=== PATIENT | female | born 1940 | race Hispanic/Latino ===

== ENCOUNTER 2017-09-04 07:37 | Day surgery (SDC) | payer MEDICARE, BC ==
[2016-06-19 10:46] VITALS: PULSE 81
[2017-09-04 06:48] VITALS: BMI 33.8
[2017-09-04 08:19] LABS: BASO # 0.01 K/mm3 (0.0-2.0); BASO % 0.2 % (0.0-3.0); EOS # 0.1 (0.0-0.7); EOS % 2.1 % (1.5-5.0); GRAN # 3.75 (1.4-6.5); GRAN % 61.4 % (50.0-68.0); HEMOGLOBIN 13.7 g/dL (12.0-16.0); LYMPH # 1.8 (1.2-3.4); LYMPH % 29.3 % (22.0-35.0); MEAN CELL VOLUME 95.4 fl (80.0-105.0); MEAN CORPUSCULAR HEMOGLOBIN 31.6 pg (25.0-35.0); MEAN CORPUSCULAR HGB CONC 33.1 g/dl (31.0-37.0); MEAN PLATELET VOLUME 11.6 fl (7.0-11.0); MONO # 0.4 (0.1-0.6); RBC 4.34 10^6/uL (3.5-6.1); RED CELL DISTRIBUTION WIDTH 14.4 % (11.5-14.5); WHITE BLOOD COUNT 6.1 10^3/ul (4.5-11.0)
[2017-09-04 08:29] LABS: INR 1.06 (0.93-1.08); PARTIAL THROMBOPLASTIN TIME 30.2 Seconds (25.1-36.5); PROTHROMBIN TIME 12.2 SECONDS (9.4-12.5)
[2017-09-04 08:30] LABS: BLOOD UREA NITROGEN 18 mg/dL (7-21); CALCIUM 9.7 mg/dL (8.4-10.5); GFR AFRICAN-AMERICAN > 60; GFR NON-AFRICAN AMERICAN > 60
[2017-09-04] MEDS ORDERED: Lidocaine 2% Inj (20ml) ONE (09:10)
[2017-09-04] MEDS ORDERED: HEPARIN SODIUM/NS 2,000 ML IV ONE (09:11)
[2017-09-04] MEDS ORDERED: Nitroglycerin 50mg in D5W 0 MG/0 ML BOTTLE IV ONE (09:12)
[2017-09-04] MEDS ORDERED: Phenylephrine 10 mg/ml Inj ONE (09:12)
[2017-09-04] MEDS ORDERED: Iodixanol 320 MG/ML 200 ML BOTTLE IV ONE (09:13)
[2017-09-04] MEDS ORDERED: Iohexol 350mgl/ml 50 ML ONE (09:13)
[2017-09-04] MEDS ORDERED: Iodixanol 320 MG/ML 100 ML BOTTLE IV ONE (09:13)
[2017-09-04] MEDS ORDERED: Midazolam 2 MG/2 ML VIAL ONE ×2 (09:34→09:43)
[2017-09-04] MEDS ORDERED: Sodium Chloride 0.9% 1,000 ML IV SCH (10:15)
[2017-09-04 10:52] VITALS: TEMP 97.7
--- NOTE | 2017-09-04 12:52 | CARD ---
APPROVED REPORT EKG Measurement Heart [id number] CT 156P34 [id number] <Conclusion> Normal sinus rhythm Inferior infarct, age Old? Abnormal ECG
[2017-09-04 13:08] VITALS: RESP 20
[2017-09-04 14:01] VITALS: O2SAT 97
[2017-09-04 16:56] VITALS: BP 142/74; PULSE 70
--- NOTE | 2017-09-04 19:50 | CARDCATH ---
PROCEDURE DATE: 09/04/2017 HISTORY: The patient is a 77-year-old woman with a history of hypertension and hypercholesterolemia, who is status post triple-vessel PTCA and stent in the past including two Rotablator's performed at [facility] several months ago. She presents with 2 weeks of exertional dyspnea and angina. She says that she is now limited to 10 steps before she gets symptoms. Because of the ongoing symptoms, repeat catheterization was recommended. PROCEDURE: Left heart catheterization with coronary angiography and left ventriculogram were performed. The right femoral artery was cannulated with 6-Israeli sheath. There were no complications. I performed moderate sedation which included the presence of an independent trained observer that assisted in monitoring the patient's level of consciousness and physiologic status. After administration of fentanyl and Versed, my intra service time was 15 minutes. The findings on catheterization revealed a left ventricle that contracted normally. Estimated ejection fraction is 55% to 60%. There was no gradient across the aortic valve. Her coronary anatomy revealed a right dominant circulation. The RCA revealed diffuse atherosclerosis with calcification and a patent stent. The left main artery revealed intimal irregularities without critical lesions. The LAD revealed diffuse atherosclerosis with irregularity in the proximal portion, but a long patent stent in the midportion. At the takeoff of a moderate size diagonal vessel, there was a 90% ostial stenosis. The circumflex artery and obtuse marginal branches revealed intimal irregularities with patent stents noted. The patient tolerated the procedure well. Manual compression will be used to close the femoral artery site because of her peripheral vascular disease. SUMMARY: The procedure revealed patent stents in the RCA, circumflex and LAD. There is a 90% stenosis at the ostium of the diagonal vessel at the takeoff of the stent that was placed at [facility]; however, there was KRISHNA 3 flow down the diagonal vessel. LV function is normal. Given these findings, the patient's treatment should be medical therapy. She should continue a cardiac risk reduction program. We will consider looking at other causes of her exertional dyspnea including ruling out pulmonary disease. Erik Troy MD
== END 2017-09-04 16:45 | disposition home or self-care (01) ==
LOC: CATH 07:37
PROVIDERS: ATTEND Internal Medicine Cardiovascular Disease
DX: I25.10 Atherosclerotic heart disease of native coronary artery without angina pectoris (principal); E78.00 Pure hypercholesterolemia, unspecified; I10 Essential (primary) hypertension; Z95.5 Presence of coronary angioplasty implant and graft
CPT/HCPCS: 36415; 80048; 85025; 85610; 85730; 86850; 86900; 93005; 93458; 99152; 99153; C1769; C1887; C2629; J1644; J2250; J3010; J7030; J7040

== ENCOUNTER 2018-08-12 08:02 | Outpatient (CLI) | payer MEDICARE, BC | END 2018-08-12 08:03 | disposition home or self-care (01) | LOC: RAD 08:02 ==

== ENCOUNTER 2018-09-09 16:57 | Inpatient (IN) | payer MEDICARE, BC ==
[2018-09-09 16:57] VITALS: PULSE 81
[2018-09-09] MEDS ORDERED: Sodium Chloride 0.9% 1,000 ML IV SCH (18:00)
--- NOTE | 2018-09-09 18:07 | ED PDOC ---
Arrival/HPI <Vlad Hollingsworth - Last Filed: 09/09/18 20:31> - General Historian: Patient - History of Present Illness Narrative History of Present Illness (Text): 09/09/18 17:39 78 year old female, with past medical history of A-Fib, Hypertension, Diabetes, and COPD, presents to the ED for evaluation of elevated LFTs today. Patient reports having blood work done at Dr. Langston' office on 09/04 and was informed of elevated LFTs in his office today and was subsequently referred to the ED for medical evaluation. Patient reports abdominal distention and nausea since weeks but denies any other associated somatic complaints. Patient denies any fevers, chills, headache, dizziness, chest pain, shortness of breath, dyspnea on exertion, cough, abdominal pain, vomiting, diarrhea, back pain, neck pain, urinary symptoms or any other complaints. Patient denies any smoking cigarettes or drinking alcohol. PMD: Dr. Langston Time/Duration: > week Symptom Onset: Gradual Symptom Course: Unchanged Activities at Onset: Light Context: Home <Fiona Ybarra - Last Filed: 09/12/18 14:55> - General Chief Complaint: Abnormal Labs Time Seen by Provider: 09/09/18 17:26 Past Medical History - Provider Review Nursing Documentation Reviewed: Yes - Infectious Disease Hx of Infectious Diseases: None - Reproductive Menopause: Yes - Cardiac Hx Hypotension: Yes Hx Pacemaker: No Other/Comment: cardiac stent x 6 - Pulmonary Hx Respiratory Disorders: Yes Hx Asthma: Yes - Neurological Hx Paralysis: No - HEENT Hx HEENT Disorder: No - Renal Hx Renal Disorder: No - Endocrine/Metabolic Hx Diabetes Mellitus Type 2: Yes - Hematological/Oncological Hx Blood Transfusions: No - Integumentary Hx Dermatological Disorder: No - Musculoskeletal/Rheumatological Hx Musculoskeletal Disorders: Yes - Gastrointestinal Hx Gastrointestinal Disorders: No - Genitourinary/Gynecological Hx Genitourinary Disorders: No - Psychiatric Hx Emotional Abuse: No Hx Physical Abuse: No Hx Substance Use: No - Surgical History Hx Cardiac Catheterization: Yes (stents) Hx Coronary Stent: Yes - Anesthesia Hx Anesthesia Reactions: Yes Hx Malignant Hyperthermia: No - Suicidal Assessment Feels Threatened In Home Enviroment: No <Fiona Ybarra - Last Filed: 09/12/18 14:55> Family/Social History - Physician Review Nursing Documentation Reviewed: Yes Family/Social History: Unknown Family HX Smoking Status: Former Smoker Hx Alcohol Use: No Hx Substance Use: No <Fiona Ybarra - Last Filed: 09/12/18 14:55> Allergies/Home Meds <Vlad Hollingsworth - Last Filed: 09/09/18 20:31> <Fiona Ybarra - Last Filed: 09/12/18 14:55> Allergies/Adverse Reactions: Allergies No Known Allergies Allergy (Verified 11/01/15 04:36) Home Medications: Home Meds Medication Instructions Recorded Confirmed RX: Atorvastatin [Lipitor] 10 mg PO DIN 11/10/14 09/09/18 RX: Sotalol [Betapace] 80 mg PO BID 11/10/14 09/09/18 RX: Doxazosin [Cardura] 2 mg PO HS 11/01/15 09/09/18 RX: Cholecalciferol (Vitamin D3) 2,000 unit PO QOTHERDAY 06/14/16 09/09/18 [Vitamin D3] RX: Thomas-3 Fatty Acids/Fish Oil 1,000 mg PO DAILY 06/14/16 09/09/18 [Fish Oil 1,000 mg Capsule] Aspirin [Ecotrin] 81 mg PO DAILY 09/04/17 09/09/18 Diltiazem HCl [Cartia Xt] 180 mg PO DAILY 09/04/17 09/09/18 Tiotropium Charlotte Inhaler 0 inhaler 09/09/18 [Spiriva Inhalation Handihaler Device] Review of Systems - Physician Review All systems were reviewed & negative as marked: Yes - Review of Systems Constitutional: absent: Fevers Respiratory: absent: SOB, Cough Cardiovascular: absent: Chest Pain Gastrointestinal: Nausea, Other (Abdominal distention). absent: Diarrhea, Vomiting Genitourinary Female: absent: Dysuria, Urine Output Changes Musculoskeletal: absent: Back Pain, Neck Pain Skin: absent: Rash Neurological: absent: Headache, Dizziness <Fiona Ybarra - Last Filed: 09/12/18 14:55> Physical Exam Vital Signs Temp Pulse Resp BP Pulse Ox 09/09/18 17:12 98.7 F 78 20 125/76 96 09/09/18 16:57 98.7 F 78 20 125/76 96 <Vlad Hollingsworth - Last Filed: 09/09/18 20:31> Vital Signs Reviewed: Yes Vital Signs Temp Pulse Resp BP Pulse Ox 09/09/18 17:12 98.7 F 78 20 125/76 96 Temperature: Afebrile Blood Pressure: Normal Pulse: Regular Respiratory Rate: Normal Appearance: Positive for: Well-Appearing, Non-Toxic, Comfortable Pain Distress: None Mental Status: Positive for: Alert and Oriented X 3 - Systems Exam Head: Present: Atraumatic, Normocephalic Pupils: Present: PERRL Extroacular Muscles: Present: EOMI Conjunctiva: Present: Icteric Mouth: Present: Dry Neck: Present: Normal Range of Motion Respiratory/Chest: Present: Clear to Auscultation, Good Air Exchange. No: Res piratory Distress, Accessory Muscle Use Cardiovascular: Present: Regular Rate and Rhythm, Normal S1, S2. No: Murmurs Abdomen: No: Tenderness, Distention, Peritoneal Signs Back: Present: Normal Inspection Upper Extremity: Present: Normal Inspection. No: Cyanosis, Edema Lower Extremity: Present: Edema (trace edema bilaterally) Neurological: Present: GCS=15, CN II-XII Intact, Speech Normal Skin: Present: Warm, Dry, Other (Jaundice). No: Rashes Psychiatric: Present: Alert, Oriented x 3, Normal Insight, Normal Concentration <Fiona Ybarra - Last Filed: 09/12/18 14:55> Medical Decision Making - Lab Interpretations Lab Results: PT 16.0 SECONDS (9.4-12.5) H 09/09/18 18:00 INR 1.44 09/09/18 18:00 APTT 32.1 Seconds (26.9-38.3) 09/09/18 18:00 Troponin I < 0.01 ng/mL D 09/09/18 18:00 Total Bilirubin 10.1 mg/dL (0.2-1.3) H 09/09/18 18:00 AST 121 U/L (14-36) H 09/09/18 18:00 ALT 147 U/L (7-56) H 09/09/18 18:00 Alkaline Phosphatase 364 U/L (38-126) H 09/09/18 18:00 Total Protein 8.0 g/dL (5.8-8.3) 09/09/18 18:00 Albumin 4.0 g/dL (3.0-4.8) 09/09/18 18:00 Globulin 4.0 gm/dL 09/09/18 18:00 Albumin/Globulin Ratio 1.0 (1.1-1.8) L 09/09/18 18:00 Lipase 345 U/L (23-300) H 09/09/18 18:00 - RAD Interpretation Radiology Orders: 09/09/18 17:39 CHEST PORTABLE [RAD] Stat 09/09/18 17:40 ABD & PELVIS IV CONTRAST ONLY [CT] Stat 09/09/18 17:52 ABDOMEN COMPLETE [US] Stat - Medication Orders Current Medication Orders: Sodium Chloride (Sodium Chloride 0.9%) 1,000 mls @ 100 mls/hr IV .Q10H SONIA Last Admin: 09/09/18 19:04 Dose: 100 mls/hr eMAR Start Stop Document 09/09/18 19:04 SRE (Rec: 09/09/18 19:07 SRE [id number]) Intravenous Solution Start Date 09/09/18 Start Time 19:07 <Vlad Hollingsworth - Last Filed: 09/09/18 20:31> ED Course and Treatment: 09/09/18 17:39 Impression: 78 year old female presents to the ED for evaluation of elevated LFTs. Plan: -- CT of Abdomen/Pelvis -- EKG -- Labs -- CXR -- IV fluids -- Urinalysis -- US of Abdomen -- Reassess and disposition Prior Visits: Notes and results from previous visits were reviewed. Progress Notes: 09/09/18 18:[address] Langston' office reviewed, shows: Total bilirubin 8.4 Alkaline phosphate 288 ALT 166 AST 98 09/09/18 18:57 Patient signed out to Dr. Hollingsworth for pending CT of Abdomen, reassessment and final disposition. 09/09/18 19:11 EKG reviewed, shows NSR at 78 bpm, nml intervals. Left axis deviation. - RAD Interpretation Radiology Orders: 09/09/18 17:39 CHEST PORTABLE [RAD] Stat 09/09/18 17:40 ABD & PELVIS IV CONTRAST ONLY [CT] Stat 09/09/18 17:52 ABDOMEN COMPLETE [US] Stat - Medication Orders Current Medication Orders: Sodium Chloride (Sodium Chloride 0.9%) 1,000 mls @ 100 mls/hr IV .Q10H SONIA - Transfer of Care Patient signed out to Dr:: Dr. Hollingsworth Pending Radiology Studies:: Pending CT of Abdomen/Pelvis <Fiona Ybarra - Last Filed: 09/12/18 14:55> - Scribe Statement The provider has reviewed the documentation as recorded by the Scribe Kimo Mosley. All medical record entries made by the Scribe were at my direction and personally dictated by me. I have reviewed the chart and agree that the record accurately reflects my personal performance of the history, physical exam, medical decision making, and the department course for this patient. I have also personally directed, reviewed, and agree with the discharge instructions and disposition. <Fiona Ybarra - Last Filed: 09/12/18 14:55> Disposition/Present on Arrival - Present on Arrival Any Indicators Present on Arrival: No History of DVT/PE: No History of Uncontrolled Diabetes: No Urinary Catheter: No History of Decub. Ulcer: No History Surgical Site Infection Following: None - Disposition Have Diagnosis and Disposition been Completed?: Yes <Vlad Hollingsworth - Last Filed: 09/09/18 20:31> - Present on Arrival History of DVT/PE: No History of Uncontrolled Diabetes: No Urinary Catheter: No History of Decub. Ulcer: No History Surgical Site Infection Following: None - Disposition Disposition Time: 14:54 <Fiona Ybarra - Last Filed: 09/12/18 14:55> - Disposition Diagnosis: Jaundice, Transaminasemia, Pancreatic cancer, Ascites Disposition: HOSPITALIZED Patient Problems: Current Active Problems Problem Status Onset Jaundice Acute Pancreatic cancer Acute Transaminasemia Acute Condition: STABLE
[2018-09-09 18:20] LABS: BASO # 0.02 K/mm3 (0.0-2.0); BASO % 0.2 % (0.0-3.0); EOS # 0.1 (0.0-0.7); EOS % 0.9 % (1.5-5.0); HEMOGLOBIN 13.8 g/dL (12.0-16.0); LYMPH # 2.1 (1.2-3.4); LYMPH % 24.8 % (22.0-35.0); MEAN CELL VOLUME 92.5 fl (80.0-105.0); MEAN CORPUSCULAR HEMOGLOBIN 31.3 pg (25.0-35.0); MEAN CORPUSCULAR HGB CONC 33.8 g/dl (31.0-37.0); MEAN PLATELET VOLUME 13.4 fl (7.0-11.0); MONO # 0.6 (0.1-0.6); RBC 4.41 10^6/uL (3.5-6.1); RED CELL DISTRIBUTION WIDTH 15.8 % (11.5-14.5); WHITE BLOOD COUNT 8.6 10^3/uL (4.5-11.0)
[2018-09-09 18:21] LABS: ALT/SGPT 147 U/L (7-56); AST/SGOT 121 U/L (14-36); BLOOD UREA NITROGEN 10 mg/dL (7-21); CALCIUM 9.7 mg/dL (8.4-10.5); GFR NON-AFRICAN AMERICAN > 60; LIPASE 345 U/L (23-300)
[2018-09-09 18:24] LABS: INR 1.44; PARTIAL THROMBOPLASTIN TIME 32.1 Seconds (26.9-38.3)
[2018-09-09 18:31] LABS: TROPONIN I < 0.01 ng/mL
[2018-09-09] MEDS ORDERED: DiphenhydrAMINE 50 mg/ml Inj IVP STA (18:38)
[2018-09-09] MEDS ORDERED: Iohexol 350 MG/100 ML VIAL ONE (18:44)
--- NOTE | 2018-09-09 18:49 | RAD ---
Date of service: 09/09/2018 HISTORY: screening COMPARISON: 04/03/2016. FINDINGS: LUNGS: The lungs are well inflated. There is linear scarring in the lower lobes. No focal consolidation. PLEURA: No pleural effusions or pneumothorax. CARDIOVASCULAR: The heart is normal in size. There are aortic atherosclerotic calcifications present. OSSEOUS STRUCTURES: Within normal limits for the patient's age. VISUALIZED UPPER ABDOMEN: Normal. OTHER FINDINGS: None. IMPRESSION: No active pulmonary disease.
--- NOTE | 2018-09-09 18:58 | US ---
Date of service: 09/09/2018 HISTORY: ruq pain, elevated lfts COMPARISON: None. TECHNIQUE: Sonographic evaluation of the abdomen. FINDINGS: LIVER: Measures 18.1 cm. There is diffuse increased echogenicity of the liver parenchyma. There is moderate intrahepatic biliary ductal dilatation. There are multiple well-circumscribed round hypoechoic lesions in the liver, the largest measures 1.6 x 1.0 x 1.6 cm. GALLBLADDER: The gallbladder is distension layering sludge. There are no gallstones, wall thickening or pericholecystic fluid. The sonographic Garcia's sign is negative. COMMON BILE DUCT: Measures 11.0 mm. Diffuse dilatation. No stone. PANCREAS: There is a 1.7 x 1.5 x 1.0 cm hyperechoic lesion in the head of the pancreas. There is a 1.1 x 0.9 x 1.0 cm cyst in the head of pancreas. RIGHT KIDNEY: Measures 11.1cm. Normal echogenicity. No calculus, mass, or hydronephrosis. There is a 2.0 cm simple cyst in the lower pole. LEFT KIDNEY: Measures 12.0cm. Normal echogenicity. No calculus, mass, or hydronephrosis. SPLEEN: Normal in size and contour. No mass. AORTA: No aneurysmal dilatation. IVC: Unremarkable. OTHER FINDINGS: None. IMPRESSION: 1. Fatty liver. 2. Moderate intra and extrahepatic biliary ductal dilatation and gallbladder distention with layering sludge. No sonographic evidence for choledocholithiasis. 3. Apparent 1.1 cm cyst in the head of the pancreas and 1.7 cm lesion in the head which may represent calcification. However evaluation of the pancreas is limited on ultrasound examination. Correlation with CT scan of the abdomen without and with intravenous contrast with pancreas protocol is advised given biliary dilatation.
--- NOTE | 2018-09-09 19:15 | ED PDOC ---
Physical Exam Vital Signs Reviewed: Yes Vital Signs Temp Pulse Resp BP Pulse Ox 09/09/18 17:12 98.7 F 78 20 125/76 96 09/09/18 16:57 98.7 F 78 20 125/76 96 Temperature: Afebrile Blood Pressure: Normal Pulse: Regular Respiratory Rate: Normal Appearance: Positive for: Well-Appearing, Non-Toxic, Comfortable Pain Distress: None Mental Status: Positive for: Alert and Oriented X 3 - Systems Exam Head: Present: Atraumatic, Normocephalic Pupils: Present: PERRL Extroacular Muscles: Present: EOMI Conjunctiva: Present: Normal, Icteric Mouth: Present: Dry Neck: Present: Normal Range of Motion Respiratory/Chest: Present: Clear to Auscultation, Good Air Exchange. No: Respiratory Distress, Accessory Muscle Use Cardiovascular: Present: Regular Rate and Rhythm, Normal S1, S2. No: Murmurs Abdomen: No: Tenderness, Distention, Peritoneal Signs Back: Present: Normal Inspection Upper Extremity: Present: Normal Inspection. No: Cyanosis, Edema Lower Extremity: Present: Edema (trace edema bilaterally) Neurological: Present: GCS=15, CN II-XII Intact, Speech Normal Skin: Present: Warm, Dry, Other (Jaundice). No: Rashes Psychiatric: Present: Alert, Oriented x 3, Normal Insight, Normal Concentration Medical Decision Making ED Course and Treatment: 09/09/18 19:14 Case endorsed to me by Dr. Ybarra for pending CT Abdomen/Pelvis, reassessment and final disposition. Patient is a 78 year old female who was sent to the ED earlier for evaluation of elevated LFTs. Patient is currently resting in bed in no acute distress. Patient currently denies any new complaints. 09/09/18 20:14 Ct Abd/Pelvis- IMPRESSION: 1. Findings compatible with a 4.0 x 3.0 cm neoplasm in the head of the pancreas. Follow-up with MRI is recommended. 2. Prominent gallbladder size may be consistent with gallbladder hydrops. 3. Intrahepatic/extrahepatic biliary dilatation is present. 4. A small hiatal hernia is noted. 5. Diverticulosis coli in the sigmoid and rectosigmoid colon without evidence of diverticulitis. 6. A small umbilical hernia is noted which contains fat. 7. Extensive atherosclerotic vascular plaquing as described above. 8. Some old anterior wedge compression deformity of L2 and L3 is identified. 9. Advanced degenerative disc disease at L5-S1. 10. Focal pneumonic consolidation versus atelectasis in the anteromedial left mid-lower thorax 09/09/18 20:25 Case was discussed with the quality engineer medical device and house doctor, who accept to the medical service - Lab Interpretations Lab Results: PT 16.0 SECONDS (9.4-12.5) H 09/09/18 18:00 INR 1.44 09/09/18 18:00 APTT 32.1 Seconds (26.9-38.3) 09/09/18 18:00 Troponin I < 0.01 ng/mL D 09/09/18 18:00 Total Bilirubin 10.1 mg/dL (0.2-1.3) H 09/09/18 18:00 AST 121 U/L (14-36) H 09/09/18 18:00 ALT 147 U/L (7-56) H 09/09/18 18:00 Alkaline Phosphatase 364 U/L (38-126) H 09/09/18 18:00 Total Protein 8.0 g/dL (5.8-8.3) 09/09/18 18:00 Albumin 4.0 g/dL (3.0-4.8) 09/09/18 18:00 Globulin 4.0 gm/dL 09/09/18 18:00 Albumin/Globulin Ratio 1.0 (1.1-1.8) L 09/09/18 18:00 Lipase 345 U/L (23-300) H 09/09/18 18:00 - RAD Interpretation Radiology Orders: 09/09/18 17:39 CHEST PORTABLE [RAD] Stat 09/09/18 17:40 ABD & PELVIS IV CONTRAST ONLY [CT] Stat 09/09/18 17:52 ABDOMEN COMPLETE [US] Stat - Medication Orders Current Medication Orders: Sodium Chloride (Sodium Chloride 0.9%) 1,000 mls @ 100 mls/hr IV .Q10H SONIA Last Admin: 09/09/18 19:04 Dose: 100 mls/hr eMAR Start Stop Document 09/09/18 19:04 SRE (Rec: 09/09/18 19:07 SRE [id number]) Intravenous Solution Start Date 09/09/18 Start Time 19:07 - Scribe Statement The provider has reviewed the documentation as recorded by the Scribe Tasfia Melany. All medical record entries made by the Isael were at my direction and personally dictated by me. I have reviewed the chart and agree that the record accurately reflects my personal performance of the history, physical exam, medical decision making, and the department course for this patient. I have also personally directed, reviewed, and agree with the discharge instructions and disposition. Disposition/Present on Arrival - Present on Arrival Any Indicators Present on Arrival: No History of DVT/PE: No History of Uncontrolled Diabetes: No Urinary Catheter: No History of Decub. Ulcer: No History Surgical Site Infection Following: None - Disposition Have Diagnosis and Disposition been Completed?: Yes Diagnosis: Jaundice, Transaminasemia, Pancreatic cancer Disposition: HOSPITALIZED Disposition Time: 20:35 Patient Problems: Current Active Problems Problem Status Onset Jaundice Acute Pancreatic cancer Acute Transaminasemia Acute Condition: STABLE Forms: [employer] (Kinyarwanda)
--- NOTE | 2018-09-09 21:24 | CP.PCM.HP ---
<Demetrius Bunch - Last Filed: 09/10/18 02:12> History of Present Illness - History of Present Illness History of Present Illness: History and Physical for Hospitalist Service, Dr. Clayton Bunch, DO PGY-1 This is a 78 y o female with PMhx HTN, A-fib, DM2, COPD, Lymphoma s/p chemotherapy in 2006, who presents to the ED sent in by PMD Dr. Langston for abnormal LFTs and jaundice. Pt states she has been having abdominal achiness and intermittent nausea present for the past several weeks, denies any inciting factors. Denies feeling itchy, did not notice that her skin was appearing more yellowish until her PMD told her today in the office. Denies any episodes of vomiting, has been able to tolerate PO diet well; pt notes that food tastes different to her lately, similar to when she was receiving her chemotherapy treatment. Pt states she had recent PET scan done several mos ago for multiple nodules on her lungs b/l, but was told as per her doctor at the time that the results were normal. Reports occasional chills. Reports last BM was yesterday, denies diarrhea or constipation. Denies night sweats, fevers, chest pain, sob, urinary complaints, or other symptoms. PMhx: HTN, A-fib, DM2, COPD, Lymphoma s/p chemotherapy in 2006, CAD PSurgHx: s/p 6 cardiac stents placed at [facility] (most recent one in Aug 2017) Allergies: NKDA Home meds: reviewed in MAR Fam hx: Sister with heart disease, hx Alzheimer's disease in family; no family hx of malignancies Soc hx: smoked 1.5 ppd cigarettes, quit in 2006 when diagnosed with lymphoma; denies EtOH or illicit drug use; retired, shares 2 family house with children, lives on 1st floor, able to perform ADLs without concerns PMD: Dr. Langston Present on Admission - Present on Admission Any Indicators Present on Admission: No History of DVT/PE: No History of Uncontrolled Diabetes: No Urinary Catheter: No Decubitus Ulcer Present: No Review of Systems - Constitutional Constitutional: Chills, Fatigue. absent: Fever, Frequent Falls, Headache, Night Sweats, Weakness - EENT Eyes: Other (Yellow eyes) - Cardiovascular Cardiovascular: absent: Chest Pain, Diaphoresis, Dyspnea on Exertion, Leg Edema, Palpitations - Respiratory Respiratory: absent: Cough, Dyspnea on Exertion, Wheezing, Chest Congestion - Gastrointestinal Gastrointestinal: Abdominal Pain, Nausea. absent: Change in Bowel Habits, Constipation, Diarrhea, Dysphagia, Vomiting - Genitourinary Genitourinary: absent: Dysuria, Urinary Frequency - Integumentary Integumentary: Jaundice Past Patient History - Infectious Disease Hx of Infectious Diseases: None - Past Social History Smoking Status: Former Smoker - CARDIAC Hx Hypotension: Yes Hx Pacemaker: No Other/Comment: cardiac stent x 6 - PULMONARY Hx Respiratory Disorders: Yes Hx Asthma: Yes - NEUROLOGICAL Hx Paralysis: No - HEENT Hx HEENT Problems: No - RENAL Hx Chronic Kidney Disease: No - ENDOCRINE/METABOLIC Hx Diabetes Mellitus Type 2: Yes - HEMATOLOGICAL/ONCOLOGICAL Hx Blood Transfusions: No - INTEGUMENTARY Hx Dermatological Problems: No - MUSCULOSKELETAL/RHEUMATOLOGICAL Hx Musculoskeletal Disorders: Yes - GASTROINTESTINAL Hx Gastrointestinal Disorders: No - GENITOURINARY/GYNECOLOGICAL Hx Genitourinary Disorders: No - PSYCHIATRIC Hx Emotional Abuse: No Hx Physical Abuse: No Hx Substance Use: No - SURGICAL HISTORY Hx Cardiac Catheterization: Yes (stents) Hx Coronary Stent: Yes - ANESTHESIA Hx Anesthesia Reactions: Yes Hx Malignant Hyperthermia: No Meds Allergies/Adverse Reactions: Allergies Allergy/AdvReac Type Severity Reaction Status Date / Time No Known Allergies Allergy Verified 11/01/15 04:36 Physical Exam - Constitutional Appears: Non-toxic, No Acute Distress - Head Exam Head Exam: ATRAUMATIC, NORMOCEPHALIC - Eye Exam Eye Exam: EOMI, PERRL, Scleral icterus - ENT Exam ENT Exam: Mucous Membranes Moist Additional comments: Jaundice noted underneath tongue - Respiratory Exam Respiratory Exam: Clear to Auscultation Bilateral, NORMAL BREATHING PATTERN. absent: Rales, Rhonchi, Wheezes - Cardiovascular Exam Cardiovascular Exam: REGULAR RHYTHM, +S1, +S2. absent: Gallop, Rubs, Systolic Murmur - GI/Abdominal Exam GI & Abdominal Exam: Distended, Normal Bowel Sounds, Soft. absent: Guarding, Organomegaly, Rebound, Rigid, Tenderness Additional comments: Negative fluid wave palpated - Extremities Exam Extremities exam: Positive for: full ROM, normal capillary refill, normal inspection, pedal edema, pedal pulses present. Negative for: calf tenderness Additional comments: trace/1+ pedal edema b/l - Back Exam Back exam: FULL ROM, NORMAL INSPECTION. absent: paraspinal tenderness - Neurological Exam Neurological exam: Alert, CN II-XII Intact, Oriented x3, Reflexes Normal - Psychiatric Exam Psychiatric exam: Normal Affect, Normal Mood - Skin Skin Exam: Dry, Intact, Warm Additional comments: Diffuse jaundice noted on upper torso and abdomen on exam Results - Vital Signs Recent Vital Signs: Last Vital Signs Temp 98.7 F 09/09/18 17:12 Pulse 78 09/09/18 17:12 Resp 20 09/09/18 17:12 BP 125/76 09/09/18 17:12 Pulse Ox 96 09/09/18 17:12 - Labs Result Diagrams: 09/09/18 18:00 09/09/18 18:00 Labs: Laboratory Results - last 24 hr 09/09/18 09/09/18 09/09/18 18:00 18:00 18:00 WBC 8.6 RBC 4.41 Hgb 13.8 Hct 40.8 MCV 92.5 MCH 31.3 MCHC 33.8 RDW 15.8 H Plt Count 199 MPV 13.4 H Neut % (Auto) 67.1 Lymph % (Auto) 24.8 [place] % (Auto) 7.0 H Eos % (Auto) 0.9 L Baso % (Auto) 0.2 Lymph # (Auto) 2.1 [place] # (Auto) 0.6 Eos # (Auto) 0.1 Baso # (Auto) 0.02 Absolute Neuts (auto) 5.73 PT 16.0 H INR 1.44 APTT 32.1 Sodium 139 Potassium 3.7 Chloride 105 Carbon Dioxide 24 Anion Gap 14 BUN 10 Creatinine 0.6 L Est GFR ( Amer) > 60 Est GFR (Non-Af Amer) > 60 Random Glucose 110 Calcium 9.7 Magnesium 1.7 Total Bilirubin 10.1 H AST 121 H ALT 147 H Alkaline Phosphatase 364 H Troponin I < 0.01 D Total Protein 8.0 Albumin 4.0 Globulin 4.0 Albumin/Globulin Ratio 1.0 L Lipase 345 H Assessment & Plan - Assessment and Plan (Free Text) Assessment: This is a 78 y o female with PMhx HTN, A-fib, DM2, COPD, Lymphoma s/p chemothe rapy in 2006, who presents to the ED sent in by PMD Dr. Langston for abnormal LFTs and jaundice. Found to have suspected pancreatic neoplasm on CT scan, also transaminitis and hyperbilirubinemia. Plan: Suspected pancreatic neoplasm -Admit to med/surg -Pt with hx hymphoma s/p chemo treatment in 2006, former smoker quit in 2006, no remarkable family hx of neoplasm -Abd U/s: Fatty liver, moderate intra and extrahepatic biliary ductal dilatation and GB distension with layering sludge. No sonographic evidence for choledocholithiasis. Apparent 1.1 cm cyst in the head of the pancreas and 1.7 cm lesion in the head which may represent calcification. However eval of pancreas is limited on U/s exam. Correlation w/ CT scan abd without and with IV contrast with pancreatic protocol is advised given biliary dilatation. -CT abd/pelvis: Findings compatible w/ 4 x3 cm neoplasm in the head of the pancreas. F/u with MRI is recommended. prominent GB size may be consistent w/ GB hydrops. Intrahepatic/extrahepatic biliary dilatation is present. Small hiatal hernia noted. Diverticulosis coli in sigmoid and rectosigmoid colon without evidence of diverticulitis. A small umbilical hernia which contains fat. Extensive atherosclerotic vascular plaquing. Old anterior wedge compression deformity of L2 and L3. Advanced degenerative disc disease at L5-S1. Focal pneumonic consolidation vs. atelectasis in the anteromedial L mid-lower thorax. -GI consulted (Dr. Carias), recs appreciated -Heme/onc consulted (Dr. Cagle), recs appreciated -Lipase elevated at 345 on admission -EKG on admission demonstrates NSR at [address], [address]-T wave changes -Trop neg x1 on admission -Pending CA 19-9, CEA -HHD -IVF @ 60 cc/hr -Zofran prn for nausea Transaminitis -AST/ALT 121/147, ALP 364 -May be 2/2 to pancreatic mass Hyperbilirubinemia -Total bili on admission 10.1 -Pt demonstrating jaundice on exam, scleral icterus -Pending direct bili, GGT Hx HTN -C/w home meds Doxazosin and Sotalol -Cont to trend bps Hx HLD -C/w Lipitor daily Hx CAD s/p 6 stents -C/w home med ASA daily Hx A-fib -C/w home med ASA and Cardizem Hx COPD -C/w home med Spiriva -Duonebs q6h prn for shortness of breath PPX: Protonix/SCDs Pt seen, examined with, and plan discussed with Dr. Arnold, attending physician. Demetrius Bunch DO PGY-1, Engine Monitor Pager #[phone] <Anni Arnold - Last Filed: 09/10/18 03:01> Results - Vital Signs Recent Vital Signs: Last Vital Signs Temp 98.7 F 09/09/18 17:12 Pulse 69 09/10/18 00:57 Resp 17 09/10/18 00:57 BP 144/55 L 09/10/18 00:57 Pulse Ox 95 09/10/18 00:57 - Labs Result Diagrams: 09/09/18 18:00 09/09/18 18:00 Labs: Laboratory Results - last 24 hr 09/09/18 09/09/18 09/09/18 18:00 18:00 18:00 WBC 8.6 RBC 4.41 Hgb 13.8 Hct 40.8 MCV 92.5 MCH 31.3 MCHC 33.8 RDW 15.8 H Plt Count 199 MPV 13.4 H Neut % (Auto) 67.1 Lymph % (Auto) 24.8 [place] % (Auto) 7.0 H Eos % (Auto) 0.9 L Baso % (Auto) 0.2 Lymph # (Auto) 2.1 [place] # (Auto) 0.6 Eos # (Auto) 0.1 Baso # (Auto) 0.02 Absolute Neuts (auto) 5.73 PT 16.0 H INR 1.44 APTT 32.1 Sodium 139 Potassium 3.7 Chloride 105 Carbon Dioxide 24 Anion Gap 14 BUN 10 Creatinine 0.6 L Est GFR ( Amer) > 60 Est GFR (Non-Af Amer) > 60 Random Glucose 110 Calcium 9.7 Magnesium 1.7 Total Bilirubin 10.1 H Direct Bilirubin AST 121 H ALT 147 H Alkaline Phosphatase 364 H Troponin I < 0.01 D Total Protein 8.0 Albumin 4.0 Globulin 4.0 Albumin/Globulin Ratio 1.0 L Lipase 345 H 09/09/18 18:00 WBC RBC Hgb Hct MCV MCH MCHC RDW Plt Count MPV Neut % (Auto) Lymph % (Auto) Hans[place] % (Auto) Eos % (Auto) Baso % (Auto) Lymph # (Auto) Hans[place] # (Auto) Eos # (Auto) Baso # (Auto) Absolute Neuts (auto) PT INR APTT Sodium Potassium Chloride Carbon Dioxide Anion Gap BUN Creatinine Est GFR ( Amer) Est GFR (Non-Af Amer) Random Glucose Calcium Magnesium Total Bilirubin Direct Bilirubin 7.7 H AST ALT Alkaline Phosphatase Troponin I Total Protein Albumin Globulin Albumin/Globulin Ratio Lipase Attending/Attestation - Attestation I have personally seen and examined this patient.: Yes I have fully participated in the care of the patient.: Yes I have reviewed all pertinent clinical information: Yes
[2018-09-09] MEDS ORDERED: Albuterol-Ipratrop 3 mg / 0.5 (3 ml) UD IH PRN (22:19)
[2018-09-09] MEDS: Sodium Chloride 0.9% 1,000 ML IV SCH (22:25)
[2018-09-10 04:37] VITALS: BMI 34.5
[2018-09-10 06:56] LABS: BASO # 0.01 K/mm3 (0.0-2.0); BASO % 0.1 % (0.0-3.0); EOS # 0.1 (0.0-0.7); EOS % 1.9 % (1.5-5.0); HEMOGLOBIN 12.9 g/dL (12.0-16.0); LYMPH # 1.6 (1.2-3.4); LYMPH % 24.2 % (22.0-35.0); MEAN CELL VOLUME 93.6 fl (80.0-105.0); MEAN CORPUSCULAR HEMOGLOBIN 30.8 pg (25.0-35.0); MEAN CORPUSCULAR HGB CONC 32.9 g/dl (31.0-37.0); MEAN PLATELET VOLUME 13.1 fl (7.0-11.0); MONO # 0.6 (0.1-0.6); MONO % 9.2 % (1.0-6.0); RBC 4.19 10^6/uL (3.5-6.1); RED CELL DISTRIBUTION WIDTH 15.9 % (11.5-14.5); WHITE BLOOD COUNT 6.8 10^3/uL (4.5-11.0)
[2018-09-10 07:09] LABS: ALB/GLOB RATIO 0.9 (1.1-1.8); ALBUMIN 3.6 g/dL (3.0-4.8); ALT/SGPT 135 U/L (7-56); AST/SGOT 113 U/L (14-36); BLOOD UREA NITROGEN 9 mg/dL (7-21); CALCIUM 9.3 mg/dL (8.4-10.5); GFR NON-AFRICAN AMERICAN > 60
[2018-09-10 07:12] LABS: GAMMA GLUTAMYL TRANSPEPTIDASE 482 U/L (8-78)
[2018-09-10] MEDS ORDERED: Magnesium Sulfate 2 gm/50 ml 2 GM/50 ML BAG IVPB ONE (09:31)
--- NOTE | 2018-09-10 09:34 | CP.PCM.CON ---
<Rehan Silveira R - Last Filed: 09/10/18 10:16> History of Present Illness - History of Present Illness History of Present Illness: PGY-2 heme/onc consult note for Dr Cagle Mrs Dominguez is a 78 year old female with a PMHx of lymphoma s/o chemotherapy in 2006, CAD with 6 stents, A-Fib, HTN, NIDDM2, COPD who was sent to the ER by her PMD for juandice and abdominal discomfort. The patient reports that for the past 1 month she has had intermittent abdominal discomfort and nausea with loss of appetite due to food making her nauseous. She stated she did not notice her skin and the whites of her eyes becoming more yellow nor did any family members notice. She denied GI issues such as d/c, abdominal pain, vomiting, chest pain, f/c. She had a PET scan performed in 05/2018 which showed several pulmonary nodules <1cm and a 8mm hypodensity at the pancreatic tail - however there was unremarkable pathologic FDG activity. PMhx: HTN, A-fib, DM2, COPD, Lymphoma s/p chemotherapy in 2006, CAD PSurgHx: s/p 6 cardiac stents placed at [facility] (most recent one in Aug 2017) Allergies: NKDA Home meds: reviewed in OCT Fam hx: Sister with heart disease, hx Alzheimer's disease in family; no family hx of malignancies Soc hx: smoked 1.5 ppd cigarettes, quit in 2006 when diagnosed with lymphoma; denies EtOH or illicit drug use; retired, shares 2 family house with children, lives on 1st floor, able to perform ADLs without concerns PMD: Dr. Langston Oncologist: Dr Cagle Pharmacist Intern: Dr Neal Review of Systems - Review of Systems All systems: reviewed and no additional remarkable complaints except (as stated in HPI) Past Patient History - Infectious Disease Hx of Infectious Diseases: None - Past Social History Smoking Status: Former Smoker - CARDIAC Hx Cardiac Disorders: Yes Hx Cardia Arrhythmia: Yes (Afib) Hx Hypercholesterolemia: Yes Hx Hypertension: Yes Hx Pacemaker: No Other/Comment: cardiac stent x 6 - PULMONARY Hx Respiratory Disorders: Yes Hx Asthma: Yes Hx Chronic Obstructive Pulmonary Disease (COPD): Yes - NEUROLOGICAL Hx Neurological Disorder: No - HEENT Hx HEENT Problems: No - RENAL Hx Chronic Kidney Disease: No - ENDOCRINE/METABOLIC Hx Diabetes Mellitus Type 2: Yes - HEMATOLOGICAL/ONCOLOGICAL Hx Blood Disorders: Yes Other/Comment: hx of lymphoma had chemo therapy 2006 - INTEGUMENTARY Hx Dermatological Problems: No - MUSCULOSKELETAL/RHEUMATOLOGICAL Hx Musculoskeletal Disorders: Yes Hx Degenerative Joint Disease: Yes Hx Falls: No - GASTROINTESTINAL Hx Gastrointestinal Disorders: No - GENITOURINARY/GYNECOLOGICAL Hx Genitourinary Disorders: No - PSYCHIATRIC Hx Emotional Abuse: No Hx Physical Abuse: No Hx Substance Use: No - SURGICAL HISTORY Hx Surgeries: Yes Hx Cardiac Catheterization: Yes (stents) Hx Coronary Stent: Yes - ANESTHESIA Hx Anesthesia Reactions: Yes Hx Malignant Hyperthermia: No Meds Allergies/Adverse Reactions: Allergies Allergy/AdvReac Type Severity Reaction Status Date / Time No Known Allergies Allergy Verified 11/01/15 04:36 - Medications Medications: Current Medications Albuterol/Ipratropium (Duoneb 3 Mg/0.5 Mg (3 Ml) Ud) 3 ml IH [id number] PRN PRN Reason: Shortness of Breath Aspirin (Ecotrin) 81 mg PO DAILY [facility] Atorvastatin Calcium (Lipitor) 10 mg PO DIN [facility] Diltiazem HCl (Cardizem Cd) 180 mg PO DAILY [facility] Doxazosin Mesylate (Cardura) 2 mg PO HS [facility] Last Admin: 09/09/18 22:47 Dose: 2 mg Sodium Chloride (Sodium Chloride 0.9%) 1,000 mls @ 60 mls/hr IV .[id number] [facility] Last Admin: 09/09/18 22:25 Dose: 60 mls/hr Ondansetron HCl (Zofran Inj) 4 mg IVP Q4H PRN PRN Reason: Nausea/Vomiting Pantoprazole Sodium (Protonix Inj) 40 mg IVP DAILY [facility] Sotalol HCl (Betapace) 80 mg PO BID [facility] Tiotropium [place] (Spiriva) 18 mcg IH DAILY [facility] Physical Exam - Constitutional Appears: Well, Non-toxic, No Acute Distress Additional comments: obese body habitus - Head Exam Head Exam: ATRAUMATIC, NORMAL INSPECTION - Eye Exam Eye Exam: EOMI, Normal appearance, PERRL, Scleral icterus - ENT Exam ENT Exam: Mucous Membranes Moist - Neck Exam Neck exam: Positive for: Normal Inspection. Negative for: Lymphadenopathy, Tenderness - Respiratory Exam Respiratory Exam: Clear to Auscultation Bilateral, NORMAL BREATHING PATTERN. absent: Rales, Rhonchi, Wheezes - Cardiovascular Exam Cardiovascular Exam: Irregular Rhythm, +S1, +S2, Systolic Murmur. absent: Tachycardia, JVD - GI/Abdominal Exam GI & Abdominal Exam: Normal Bowel Sounds, Organomegaly, Soft. absent: Guarding, Rebound, Tenderness Additional comments: hepatomegaly - liver palpated well below the costal margin - Extremities Exam Extremities exam: Positive for: full ROM, normal capillary refill, normal inspection, pedal pulses present - Neurological Exam Neurological exam: Alert, Oriented x3 - Psychiatric Exam Psychiatric exam: Normal Affect, Normal Mood - Skin Skin Exam: Dry, Intact, Warm Additional comments: juandice Results - Vital Signs Recent Vital Signs: Last Vital Signs Temp 98 F 09/10/18 06:00 Pulse 77 09/10/18 06:00 Resp 20 09/10/18 06:00 BP 145/60 09/10/18 06:00 Pulse Ox 95 09/10/18 06:00 - Labs Result Diagrams: 09/10/18 06:34 09/10/18 06:34 Labs: Laboratory Results - last 24 hr 09/09/18 09/09/18 09/09/18 18:00 18:00 18:00 WBC 8.6 RBC 4.41 Hgb 13.8 Hct 40.8 MCV 92.5 MCH 31.3 MCHC 33.8 RDW 15.8 H Plt Count 199 MPV 13.4 H Neut % (Auto) 67.1 Lymph % (Auto) 24.8 [place] % (Auto) 7.0 H Eos % (Auto) 0.9 L Baso % (Auto) 0.2 Lymph # (Auto) 2.1 [place] # (Auto) 0.6 Eos # (Auto) 0.1 Baso # (Auto) 0.02 Absolute Neuts (auto) 5.73 PT 16.0 H INR 1.44 APTT 32.1 Sodium 139 Potassium 3.7 Chloride 105 Carbon Dioxide 24 Anion Gap 14 BUN 10 Creatinine 0.6 L Est GFR ( Amer) > 60 Est GFR (Non-Af Amer) > 60 POC Glucose (mg/dL) Random Glucose 110 Calcium 9.7 Phosphorus Magnesium 1.7 Total Bilirubin 10.1 H Direct Bilirubin GGT AST 121 H ALT 147 H Alkaline Phosphatase 364 H Troponin I < 0.01 D Total Protein 8.0 Albumin 4.0 Globulin 4.0 Albumin/Globulin Ratio 1.0 L Lipase 345 H Carcinoembryonic Ag 09/09/18 09/10/18 09/10/18 18:00 06:34 06:34 WBC 6.8 D RBC 4.19 Hgb 12.9 Hct 39.2 MCV 93.6 MCH 30.8 MCHC 32.9 RDW 15.9 H Plt Count 171 MPV 13.1 H Neut % (Auto) 64.6 Lymph % (Auto) 24.2 [place] % (Auto) 9.2 H Eos % (Auto) 1.9 Baso % (Auto) 0.1 Lymph # (Auto) 1.6 [place] # (Auto) 0.6 Eos # (Auto) 0.1 Baso # (Auto) 0.01 Absolute Neuts (auto) 4.37 PT INR APTT Sodium 141 Potassium 3.7 Chloride 106 Carbon Dioxide 25 Anion Gap 13 BUN 9 Creatinine 0.6 L Est GFR ( Amer) > 60 Est GFR (Non-Af Amer) > 60 POC Glucose (mg/dL) Random Glucose 104 Calcium 9.3 Phosphorus 3.3 Magnesium 1.6 L Total Bilirubin 9.5 H Direct Bilirubin 7.7 H GGT AST 113 H ALT 135 H Alkaline Phosphatase 293 H Troponin I Total Protein 7.4 Albumin 3.6 Globulin 3.8 Albumin/Globulin Ratio 0.9 L Lipase Carcinoembryonic Ag 09/10/18 09/10/18 09/10/18 06:34 06:34 06:40 WBC RBC Hgb Hct MCV MCH MCHC RDW Plt Count MPV Neut % (Auto) Lymph % (Auto) [place] % (Auto) Eos % (Auto) Baso % (Auto) Lymph # (Auto) [place] # (Auto) Eos # (Auto) Baso # (Auto) Absolute Neuts (auto) PT INR APTT Sodium Potassium Chloride Carbon Dioxide Anion Gap BUN Creatinine Est GFR ( Amer) Est GFR (Non-Af Amer) POC Glucose (mg/dL) 95 Random Glucose Calcium Phosphorus Magnesium Total Bilirubin Direct Bilirubin GGT 482 H AST ALT Alkaline Phosphatase Troponin I Total Protein Albumin Globulin Albumin/Globulin Ratio Lipase Carcinoembryonic Ag 2.4 Assessment & Plan - Assessment and Plan (Free Text) Plan: Mrs Dominguez is a 78 year old female with a PMHx of lymphoma s/p chemotherapy in 2006, CAD with 6 stents, A-Fib, HTN, NIDDM2, COPD who was sent to the ER by her PMD for juandice and abdominal discomfort: Suspected Pancreatic Head Neoplasm -elevated LFTs as well as direct bilirubin and GGT consistent with obstructive hyperbilirubinemia possibly due to pancreatic head mass -f/u cea and ca 19-9 markers to have baseline values -GI on board, Dr Carias -consult IR Dr Erik Parham so patient can be known to him in event a percutaneous stent/drain will need to be placed in future -consult hepatobiliary surgeon, Dr Cronin so he may assess issue of operability -order for MRCP abdomen w/ and w/o contrast Imaging: -CT abd/pelvis w/ iv contrast 09/09/2018: * Findings compatible w/ 4 x3 cm neoplasm in the head of the pancreas. F/u with MRI is recommended. prominent GB size may be consistent w/ GB hydrops. Intrahepatic/extrahepatic biliary dilatation is present. Small hiatal hernia noted. Diverticulosis coli in sigmoid and rectosigmoid colon without evidence of diverticulitis. A small umbilical hernia which contains fat. Extensive atherosclerotic vascular plaquing. Old anterior wedge compression deformity of L2 and L3. Advanced degenerative disc disease at L5-S1. Focal pneumonic consolidation vs. atelectasis in the anteromedial L mid-lower thorax. -Abdominal Ultrasound 09/09/2018: * 1. fatty liver 2. moderate intra and extrahepatic biliary ductal dilation and gallbladder distension with layering sludge, no sonographic evidence for choledocholithiasis 3. apparent 1.1cm cyst in head of pancreas and 1.7cm les ion in head which may represent calcification, however evaluation if limited -PET scan 05/2018: * emphysematous changes; several left lung pulm nodules measuring 9mm, 7mm, 4mm, 6mm; mild to no increased FDG uptake; pancreatic atrophy - 8mm faintly visualized hypodensity at pancreatic tail re-identified, uncertain etiology Hx of Non-Hodgkins Lymphoma -in remission -s/p chemotherapy in 2006 Seen and discussed with Dr Cagle <Tai Cagle P - Last Filed: 09/16/18 16:28> Results - Vital Signs Recent Vital Signs: Last Vital Signs Temp 97.5 F L 09/13/18 08:09 Pulse 71 09/13/18 08:09 Resp 20 09/13/18 08:09 BP 116/82 09/13/18 10:32 Pulse Ox 96 09/13/18 08:09 - Labs Result Diagrams: 09/13/18 07:00 09/13/18 07:00 Attending/Attestation - Attestation I have personally seen and examined this patient.: Yes I have fully participated in the care of the patient.: Yes I have reviewed all pertinent clinical information: Yes
--- NOTE | 2018-09-10 09:49 | CARD ---
APPROVED REPORT Date of service: 09/09/2018 EKG Measurement Heart [id number] <Conclusion> Normal sinus rhythm Left axis deviation Septal infarct, age undetermined Abnormal ECG
--- NOTE | 2018-09-10 09:56 | CT ---
Date of service: 09/09/2018 PROCEDURE: CT Abdomen and Pelvis with contrast HISTORY: elevated LFTs/jaundiced COMPARISON: 08/12/2018 TECHNIQUE: Contrast dose: 100 cc of Omni 350 Radiation dose: Total exam DLP = 814.87 mGy-cm. This CT exam was performed using one or more of the following dose reduction techniques: Automated exposure control, adjustment of the mA and/or kV according to patient size, and/or use of iterative reconstruction technique. FINDINGS: LOWER THORAX: Unremarkable. LIVER: Multiple small lesions consistent with metastatic disease GALLBLADDER AND BILE DUCTS: Gallbladder distended PANCREAS: There is a large hypodense mass in the pancreatic head measuring 2 x 4.2 cm. There is associated biliary obstruction with intrahepatic ductal dilatation. There are multiple small hypodense lesions in the liver measuring less than 1 cm in diameter. Findings consistent with metastatic disease. SPLEEN: Unremarkable. ADRENALS: Unremarkable. No mass. KIDNEYS AND URETERS: Unremarkable. No hydronephrosis. No solid mass. VASCULATURE: Unremarkable. No aortic aneurysm. Aortic calcification BOWEL: Unremarkable. No obstruction. No gross mural thickening. APPENDIX: Normal appendix. PERITONEUM: Unremarkable. No free fluid. No free air. LYMPH NODES: Unremarkable. No enlarged lymph nodes. BLADDER: Unremarkable. REPRODUCTIVE: Unremarkable. BONES: No acute fracture. OTHER FINDINGS: The report concurs with the preliminary [facility] report IMPRESSION: There is a large hypodense mass in the pancreatic head measuring 2 x 4.2 cm. This is consistent with pancreatic carcinoma. There is associated biliary obstruction with intrahepatic ductal dilatation. There are multiple small hypodense lesions in the liver measuring less than 1 cm in diameter. Findings consistent with metastatic disease.
[2018-09-10] MEDS: diltiaZEM 180 mg/24 Hours CD Cap PO SCH (11:35)
[2018-09-10] MEDS: Tiotropium 18 mcg Cap For Inhalation IH SCH (11:36)
--- NOTE | 2018-09-10 11:55 | CP.PCM.APN ---
Subjective - Date & Time of Evaluation Date of Evaluation: 09/10/18 Time of Evaluation: 11:45 - Subjective Subjective: pt seenannd examined with family at bedside pt reports abd pain - with some mild improvement Review of Systems - Review of Systems All systems: reviewed and no additional remarkable complaints except - Gastrointestinal Gastrointestinal: As Per HPI Objective - Vital Signs/Intake and Output Vital Signs (last 24 hours): Temp Pulse Resp BP Pulse Ox 98 F 77 20 145/60 95 09/10/18 06:00 09/10/18 06:00 09/10/18 06:00 09/10/18 06:00 09/10/18 06:00 Intake and Output: 09/10/18 09/10/18 06:59 18:59 Intake Total 240 Balance 240 - Medications Medications: Current Medications Albuterol/Ipratropium (Duoneb 3 Mg/0.5 Mg (3 Ml) Ud) 3 ml IH [id number] PRN PRN Reason: Shortness of Breath Aspirin (Ecotrin) 81 mg PO DAILY [facility] Last Admin: 09/10/18 11:36 Dose: 81 mg Atorvastatin Calcium (Lipitor) 10 mg PO DIN [facility] Diltiazem HCl (Cardizem Cd) 180 mg PO DAILY [facility] Last Admin: 09/10/18 11:35 Dose: 180 mg Doxazosin Mesylate (Cardura) 2 mg PO HS [facility] Last Admin: 09/09/18 22:47 Dose: 2 mg Sodium Chloride (Sodium Chloride 0.9%) 1,000 mls @ 60 mls/hr IV .[id number] [facility] Last Admin: 09/09/18 22:25 Dose: 60 mls/hr Ondansetron HCl (Zofran Inj) 4 mg IVP Q4H PRN PRN Reason: Nausea/Vomiting Pantoprazole Sodium (Protonix Inj) 40 mg IVP DAILY [facility] Last Admin: 09/10/18 11:36 Dose: 40 mg Sotalol HCl (Betapace) 80 mg PO BID [facility] Last Admin: 09/10/18 11:36 Dose: 80 mg Tiotropium [place] (Spiriva) 18 mcg IH DAILY [facility] Last Admin: 09/10/18 11:36 Dose: 18 mcg - Labs Labs: 09/10/18 06:34 09/10/18 06:34 PT 16.0 SECONDS (9.4-12.5) H 09/09/18 18:00 INR 1.44 09/09/18 18:00 APTT 32.1 Seconds (26.9-38.3) 09/09/18 18:00 - Constitutional Appears: No Acute Distress - Eye Exam Eye Exam: PERRL - Respiratory Exam Respiratory Exam: Decreased Breath Sounds - Cardiovascular Exam Cardiovascular Exam: +S1, +S2 - GI/Abdominal Exam GI & Abdominal Exam: Soft - Neurological Exam Neurological Exam: Alert, Awake - Skin Skin Exam: Dry, Warm Assessment and Plan - Assessment and Plan (Free Text) Plan: ITS Impressions Chest X-Ray 09/09/18 17:39 IMPRESSION: No active pulmonary disease. Abdomen/Pelvis CT 09/09/18 17:40 IMPRESSION: There is a large hypodense mass in the pancreatic head measuring 2 x 4.2 cm. This is consistent with pancreatic carcinoma. There is associated biliary obstruction with intrahepatic ductal dilatation. There are multiple small hypodense lesions in the liver measuring less than 1 cm in diameter. Findings consistent with metastatic disease. Abdomen Ultrasound 09/09/18 17:52 IMPRESSION: 1. Fatty liver. 2. Moderate intra and extrahepatic biliary ductal dilatation and gallbladder distention with layering sludge. No sonographic evidence for choledocholithiasis. 3. Apparent 1.1 cm cyst in the head of the pancreas and 1.7 cm lesion in the head which may represent calcification. However evaluation of the pancreas is limited on ultrasound examination. Correlation with CT scan of the abdomen without and with intravenous contrast with pancreas protocol is advised given biliary dilatation. 78 yr old with pmh sig for htn, afib, copd and lymphoma s/p chemo admitted with abd pain for several weeks now found to have jaundice and pancreatic head mass on Ct with liver lesion/mets now admitted for surgical. oncology and Gi consultation and evaluation #abd pain positive pancreatic head mass on ct with liver lesion abd US reviewed with elevated total; bili and direct bili gi. surgery and onc evaluation Ca 19-9 and CEA markers #htn BBlocker regimen #afib cardizem regimen #lymphoma s/p chemo Oncology consultation noted will follow Leonela Baxter BPCI/TIC - BPCIA/TIC Educated pt/family on BPCIA/CIR/Med to Bed Programs: N/A Flyers given, including [facility] Beneficiary letter: N/A Pt/family verbalized understanding & agreed to program: N/A
--- NOTE | 2018-09-10 14:27 | CP.PCM.CON ---
History of Present Illness - History of Present Illness History of Present Illness: Gastroenterology Fellow/PGY6 Consult Note 78 year old female with PMH of NHL s/p chemotherapy 2007, CAD s/p 6 stents (last 08/2017), Afib on Aspirin, HTN, Diabetes, and COPD presenting due to abnormal labwork. Patient notes mid-abdominal bloating and "heavy sensation" for a few weeks leading to PCP evaluation. She was contacted to present to the ER due to abnormal liver function testing. Patient denies nausea, vomiting, hematemesis, acid reflux, heartburn, abdominal pain, diarrhea, constipation, melena, hematochezia, pruritis, confusion, abdominal distension, or unintentional weight loss. No prior EGD or colonoscopy. Endorses negative stool test last year. Family History- denies colon cancer, stomach cancer Social History-former smoker, denies alcohol or illicit drug use Surgical History- cardiac stents Review of Systems - Review of Systems Review of Systems: 12-point review of systems negative except for as above Past Patient History - Infectious Disease Hx of Infectious Diseases: None - Past Social History Smoking Status: Former Smoker - CARDIAC Hx Cardiac Disorders: Yes Hx Cardia Arrhythmia: Yes (Afib) Hx Hypercholesterolemia: Yes Hx Hypertension: Yes Hx Pacemaker: No Other/Comment: cardiac stent x 6 - PULMONARY Hx Respiratory Disorders: Yes Hx Asthma: Yes Hx Chronic Obstructive Pulmonary Disease (COPD): Yes - NEUROLOGICAL Hx Neurological Disorder: No - HEENT Hx HEENT Problems: No - RENAL Hx Chronic Kidney Disease: No - ENDOCRINE/METABOLIC Hx Diabetes Mellitus Type 2: Yes - HEMATOLOGICAL/ONCOLOGICAL Hx Blood Disorders: Yes Other/Comment: hx of lymphoma had chemo therapy 2006 - INTEGUMENTARY Hx Dermatological Problems: No - MUSCULOSKELETAL/RHEUMATOLOGICAL Hx Musculoskeletal Disorders: Yes Hx Degenerative Joint Disease: Yes Hx Falls: No - GASTROINTESTINAL Hx Gastrointestinal Disorders: No - GENITOURINARY/GYNECOLOGICAL Hx Genitourinary Disorders: No - PSYCHIATRIC Hx Emotional Abuse: No Hx Physical Abuse: No Hx Substance Use: No - SURGICAL HISTORY Hx Surgeries: Yes Hx Cardiac Catheterization: Yes (stents) Hx Coronary Stent: Yes - ANESTHESIA Hx Anesthesia Reactions: Yes Hx Malignant Hyperthermia: No Meds Allergies/Adverse Reactions: Allergies Allergy/AdvReac Type Severity Reaction Status Date / Time No Known Allergies Allergy Verified 11/01/15 04:36 - Medications Medications: Current Medications Albuterol/Ipratropium (Duoneb 3 Mg/0.5 Mg (3 Ml) Ud) 3 ml IH [id number] PRN PRN Reason: Shortness of Breath Aspirin (Ecotrin) 81 mg PO DAILY [facility] Last Admin: 09/10/18 11:36 Dose: 81 mg Atorvastatin Calcium (Lipitor) 10 mg PO DIN [facility] Diltiazem HCl (Cardizem Cd) 180 mg PO DAILY [facility] Last Admin: 09/10/18 11:35 Dose: 180 mg Doxazosin Mesylate (Cardura) 2 mg PO HS [facility] Last Admin: 09/09/18 22:47 Dose: 2 mg Sodium Chloride (Sodium Chloride 0.9%) 1,000 mls @ 60 mls/hr IV .[id number] [facility] Last Admin: 09/09/18 22:25 Dose: 60 mls/hr Ondansetron HCl (Zofran Inj) 4 mg IVP Q4H PRN PRN Reason: Nausea/Vomiting Pantoprazole Sodium (Protonix Ec Tab) 40 mg PO ACB [facility] Sotalol HCl (Betapace) 80 mg PO BID [facility] Last Admin: 09/10/18 11:36 Dose: 80 mg Tiotropium [place] (Spiriva) 18 mcg IH DAILY [facility] Last Admin: 09/10/18 11:36 Dose: 18 mcg Physical Exam - Constitutional Appears: No Acute Distress, Chronically Ill - Head Exam Head Exam: ATRAUMATIC, NORMOCEPHALIC - Eye Exam Eye Exam: EOMI, PERRL, Scleral icterus Pupil Exam: PERRL. absent: Miosis, Mydriatic - ENT Exam ENT Exam: Mucous Membranes Moist, Normal Oropharynx - Neck Exam Neck exam: Positive for: Full Rom, Normal Inspection - Respiratory Exam Respiratory Exam: Clear to Auscultation Bilateral. absent: Rales, Rhonchi, Wheezes - Cardiovascular Exam Cardiovascular Exam: RRR, +S1, +S2. absent: Gallop, Rubs - GI/Abdominal Exam GI & Abdominal Exam: Distended, Normal Bowel Sounds, Soft. absent: Firm, Guarding, Organomegaly, Rebound, Rigid, Tenderness - Extremities Exam Extremities exam: Positive for: normal inspection, pedal edema - Neurological Exam Neurological exam: Alert - Psychiatric Exam Psychiatric exam: Normal Affect, Normal Mood - Skin Skin Exam: Dry, Intact, Warm Additional comments: jaundice Results - Vital Signs Recent Vital Signs: Last Vital Signs Temp 98 F 09/10/18 06:00 Pulse 77 09/10/18 06:00 Resp 20 09/10/18 06:00 BP 145/60 09/10/18 06:00 Pulse Ox 95 09/10/18 06:00 - Labs Result Diagrams: 09/10/18 06:34 09/10/18 06:34 Labs: Laboratory Results - last 24 hr 09/09/18 09/09/18 09/09/18 18:00 18:00 18:00 WBC 8.6 RBC 4.41 Hgb 13.8 Hct 40.8 MCV 92.5 MCH 31.3 MCHC 33.8 RDW 15.8 H Plt Count 199 MPV 13.4 H Neut % (Auto) 67.1 Lymph % (Auto) 24.8 [place] % (Auto) 7.0 H Eos % (Auto) 0.9 L Baso % (Auto) 0.2 Lymph # (Auto) 2.1 [place] # (Auto) 0.6 Eos # (Auto) 0.1 Baso # (Auto) 0.02 Absolute Neuts (auto) 5.73 PT 16.0 H INR 1.44 APTT 32.1 Sodium 139 Potassium 3.7 Chloride 105 Carbon Dioxide 24 Anion Gap 14 BUN 10 Creatinine 0.6 L Est GFR ( Amer) > 60 Est GFR (Non-Af Amer) > 60 POC Glucose (mg/dL) Random Glucose 110 Calcium 9.7 Phosphorus Magnesium 1.7 Total Bilirubin 10.1 H Direct Bilirubin GGT AST 121 H ALT 147 H Alkaline Phosphatase 364 H Troponin I < 0.01 D Total Protein 8.0 Albumin 4.0 Globulin 4.0 Albumin/Globulin Ratio 1.0 L Lipase 345 H Carcinoembryonic Ag 09/09/18 09/10/18 09/10/18 18:00 06:34 06:34 WBC 6.8 D RBC 4.19 Hgb 12.9 Hct 39.2 MCV 93.6 MCH 30.8 MCHC 32.9 RDW 15.9 H Plt Count 171 MPV 13.1 H Neut % (Auto) 64.6 Lymph % (Auto) 24.2 [place] % (Auto) 9.2 H Eos % (Auto) 1.9 Baso % (Auto) 0.1 Lymph # (Auto) 1.6 [place] # (Auto) 0.6 Eos # (Auto) 0.1 Baso # (Auto) 0.01 Absolute Neuts (auto) 4.37 PT INR APTT Sodium 141 Potassium 3.7 Chloride 106 Carbon Dioxide 25 Anion Gap 13 BUN 9 Creatinine 0.6 L Est GFR ( Amer) > 60 Est GFR (Non-Af Amer) > 60 POC Glucose (mg/dL) Random Glucose 104 Calcium 9.3 Phosphorus 3.3 Magnesium 1.6 L Total Bilirubin 9.5 H Direct Bilirubin 7.7 H GGT AST 113 H ALT 135 H Alkaline Phosphatase 293 H Troponin I Total Protein 7.4 Albumin 3.6 Globulin 3.8 Albumin/Globulin Ratio 0.9 L Lipase Carcinoembryonic Ag 09/10/18 09/10/18 09/10/18 06:34 06:34 06:40 WBC RBC Hgb Hct MCV MCH MCHC RDW Plt Count MPV Neut % (Auto) Lymph % (Auto) [place] % (Auto) Eos % (Auto) Baso % (Auto) Lymph # (Auto) [place] # (Auto) Eos # (Auto) Baso # (Auto) Absolute Neuts (auto) PT INR APTT Sodium Potassium Chloride Carbon Dioxide Anion Gap BUN Creatinine Est GFR ( Amer) Est GFR (Non-Af Amer) POC Glucose (mg/dL) 95 Random Glucose Calcium Phosphorus Magnesium Total Bilirubin Direct Bilirubin GGT 482 H AST ALT Alkaline Phosphatase Troponin I Total Protein Albumin Globulin Albumin/Globulin Ratio Lipase Carcinoembryonic Ag 2.4 09/10/18 11:28 WBC RBC Hgb Hct MCV MCH MCHC RDW Plt Count MPV Neut % (Auto) Lymph % (Auto) [place] % (Auto) Eos % (Auto) Baso % (Auto) Lymph # (Auto) [place] # (Auto) Eos # (Auto) Baso # (Auto) Absolute Neuts (auto) PT INR APTT Sodium Potassium Chloride Carbon Dioxide Anion Gap BUN Creatinine Est GFR ( Amer) Est GFR (Non-Af Amer) POC Glucose (mg/dL) 104 Random Glucose Calcium Phosphorus Magnesium Total Bilirubin Direct Bilirubin GGT AST ALT Alkaline Phosphatase Troponin I Total Protein Albumin Globulin Albumin/Globulin Ratio Lipase Carcinoembryonic Ag Assessment & Plan - Assessment and Plan (Free Text) Assessment: 78 year old female with PMH of NHL s/p chemotherapy 2006, CAD s/p 6 stents (last 08/2017), Afib on Aspirin, HTN, Diabetes, and COPD presenting due to abnormal liver function testing. Active treatment of painless obstructive jaundice with pancreatic and hepatic lesions on cross-sectional imaging. No prior EGD or colonoscopy. Endorses negative stool test last year. Plan: -MRCP and abdomen w/ & w/o contrast -Dr. Carias to review imaging for decision to proceed with EUS/ERCP/stent placement -follow up cardiology recommendations for clearance -Hem/Onc managing- follow up recommendations -supportive care -will follow clinical course
[2018-09-10] MEDS ORDERED: Gadodiamide 287 MG/ML VIAL (20ML) IV ONE (15:17)
--- NOTE | 2018-09-10 15:42 | CP.PCM.PN ---
<Zaheer Pepper - Last Filed: 09/10/18 16:51> Subjective - Date & Time of Evaluation Date of Evaluation: 09/10/18 Time of Evaluation: 07:00 - Subjective Subjective: Pt seen and examined, reports "abdominal fullness/ discomfort". Per nursing, no acute events overnight. Objective - Vital Signs/Intake and Output Vital Signs (last 24 hours): Temp Pulse Resp BP Pulse Ox 98 F 77 20 145/60 95 09/10/18 06:00 09/10/18 06:00 09/10/18 06:00 09/10/18 06:00 09/10/18 06:00 Intake and Output: 09/10/18 09/10/18 06:59 18:59 Intake Total 240 Balance 240 - Medications Medications: Current Medications Albuterol/Ipratropium (Duoneb 3 Mg/0.5 Mg (3 Ml) Ud) 3 ml IH [id number] PRN PRN Reason: Shortness of Breath Aspirin (Ecotrin) 81 mg PO DAILY [facility] Last Admin: 09/10/18 11:36 Dose: 81 mg Atorvastatin Calcium (Lipitor) 10 mg PO DIN [facility] Diltiazem HCl (Cardizem Cd) 180 mg PO DAILY [facility] Last Admin: 09/10/18 11:35 Dose: 180 mg Doxazosin Mesylate (Cardura) 2 mg PO HS [facility] Last Admin: 09/09/18 22:47 Dose: 2 mg Sodium Chloride (Sodium Chloride 0.9%) 1,000 mls @ 60 mls/hr IV .[id number] [facility] Last Admin: 09/09/18 22:25 Dose: 60 mls/hr Ondansetron HCl (Zofran Inj) 4 mg IVP Q4H PRN PRN Reason: Nausea/Vomiting Pantoprazole Sodium (Protonix Ec Tab) 40 mg PO ACB [facility] Sotalol HCl (Betapace) 80 mg PO BID [facility] Last Admin: 09/10/18 11:36 Dose: 80 mg Tiotropium [place] (Spiriva) 18 mcg IH DAILY [facility] Last Admin: 09/10/18 11:36 Dose: 18 mcg - Labs Labs: 09/10/18 06:34 09/10/18 06:34 PT 16.0 SECONDS (9.4-12.5) H 09/09/18 18:00 INR 1.44 09/09/18 18:00 APTT 32.1 Seconds (26.9-38.3) 09/09/18 18:00 - Constitutional Appears: No Acute Distress - Head Exam Head Exam: ATRAUMATIC, NORMOCEPHALIC - Eye Exam Eye Exam: EOMI, Scleral icterus - ENT Exam ENT Exam: Mucous Membranes Moist - Neck Exam Neck Exam: Full ROM - Respiratory Exam Respiratory Exam: Clear to Ausculation Bilateral, NORMAL BREATHING PATTERN. absent: Accessory Muscle Use - Cardiovascular Exam Cardiovascular Exam: RRR, +S1, +S2. absent: Diastolic murmur, Murmur - GI/Abdominal Exam GI & Abdominal Exam: Soft, Tenderness - Extremities Exam Extremities Exam: Full ROM - Neurological Exam Neurological Exam: Alert, Awake, Oriented x3 - Psychiatric Exam Psychiatric exam: Normal Affect, Normal Mood - Skin Skin Exam: Dry, Normal Color, Warm Assessment and Plan - Assessment and Plan (Free Text) Assessment: Pt is a 78 yo female with PMH HTN, atrial fibrillation, DM2, COPD, Lymphoma s/p chemotherapy in 2006, who presented to the ED for abnormal LFTs, jaundice, transaminitis, and hyperbilirubinemia, found to have a suspected pancreatic neoplasm on CT scan. Plan: Suspected Pancreatic Neoplasm - Lipase 345 - CA 19-9 <1.4 - CEA 2.4 - AST 113 - ALT 135 - ALP 293 - T. Bili 9.5 - D bili 7.7 - NS@60 - Zofran prn for nausea - MRCP: follow up - Abdominal US: fatty liver. moderate intra and extrahepatic biliary ductal dilation and gallbladder distention with layering sludge. no evidence of choledocholithiasis. 1.1cm cyst in the head of the pancreas and 1.7cm lesion in the head which may represent calcification. - CTAP: there is a large hypodense, mass inth epancreatic head 2x 4.2cm which is consistent with pancreatic carcinoma. Associated biliary obstruction with intrahepatic ductal dilation. there are multiple small hypodense lesions in the liver measuring less than 1 cm in diameter. Findings consistent with metastatic disease. - GI consulted [facility] appreciated - Heme/onc consulted lilian Adkins appreciated - Cardio consulted, Dr Troy, findings are not cardiac contraindications of possible endoscopy and ERCP HTN - Doxazosin Atrial Fibrillation - ASA - Cardizem - Sotalol CAD s/p 6 stents - ASA HLD - Lipitor COPD - Spiriva - Duonebs Ppx, diet - Protonix - SCD - HHD Pt seen, examined, assessment and plan discussed with Dr Fanta Pepper PGY1, Internal Medicine Resident <George Jewell - Last Filed: 09/13/18 16:24> Objective - Vital Signs/Intake and Output Vital Signs (last 24 hours): Temp Pulse Resp BP Pulse Ox 97.5 F L 71 20 116/82 96 09/13/18 08:09 09/13/18 08:09 09/13/18 08:09 09/13/18 10:32 09/13/18 08:09 Intake and Output: 09/13/18 09/13/18 06:59 18:59 Intake Total 0 Balance 0 - Labs Labs: 09/13/18 07:00 09/13/18 07:00 PT 15.9 SECONDS (9.4-12.5) H 09/12/18 07:00 INR 1.41 09/12/18 07:00 APTT 31.0 Seconds (26.9-38.3) 09/12/18 07:00 Attending/Attestation - Attestation I have personally seen and examined this patient.: Yes I have fully participated in the care of the patient.: Yes I have reviewed all pertinent clinical information, including history, physical exam and plan: Yes Notes (Text): 09/13/18 16:18 Attending note; patient seen and examined with resident. Patient's son and daughter by the bedside. Patient is alert and awake. Complaining of mild abdominal fullness. Denies any nausea, vomiting. Denies any chest pain, shortness of breath. Patient is a 78-year-old female with PMH HTN, atrial fibrillation, DM2, COPD, Lymphoma s/p chemotherapy in 2006, who presented to the ED for abnormal LFTs, jaundice, transaminitis, and hyperbilirubinemia, found to have a suspected pancreatic neoplasm on CT scan. 1. abdominal fullness/elevated LFTs; Abdominal US showed fatty liver, moderate intra and extrahepatic biliary ductal dilation and gallbladder distention with layering sludge. no evidence of choledocholithiasis. 1.1cm cyst in the head of the pancreas and 1.7cm lesion in the head which may represent calcification. CT abdomen and pelvis showed large hypodense, mass inth epancreatic head 2x 4.2cm which is consistent with pancreatic carcinoma. Associated biliary obstruction with intrahepatic ductal dilation. there are multiple small hypodense lesions in the liver measuring less than 1 cm in diameter. Findings consistent with metastatic disease. MRCP ordered. Patient was evaluated by GI. 2. History of lymphoma; patient follows up with Dr. Cagle. 3. History of atrial fibrillation; currently in normal sinus rhythm. Continue aspirin. Cardiology evaluation requested. The diagnosis, treatment option discussed with patient and family in detail. Upon discharge the patient will follow up with PMD Dr. Langston. 09/13/18 16:23
--- NOTE | 2018-09-10 15:56 | CON ---
DATE OF CONSULTATION: 09/10/2018 CARDIOLOGY CONSULTATION HISTORY: The patient is a 78-year-old woman with diagnosis of pancreatic CA. She has gone down for an MRI today. She is found to have elevated LFTs with some epigastric discomfort. PAST MEDICAL HISTORY: The patient's past medical history is notable for chronic atrial fibrillation, which has been treated with sotalol, and that she has remained in normal sinus rhythm. The patient's last cardiac evaluation included a cardiac catheterization in August 2017. At that time, she was found to have patent stents in the RCA, circumflex and LAD. She has a 90% stenosis in the ostium of the diagonal vessel. Her overall LV function is preserved. She denies shortness of breath. Denies chest pain. SOCIAL HISTORY: The patient does not smoke. REVIEW OF SYSTEMS: Notable for epigastric discomfort. PHYSICAL EXAMINATION: VITAL SIGNS: Blood pressure is 145/60, heart rate is in the 70s. NECK: Negative JVD. LUNGS: Without rales. CARDIAC: Heart rate S1, S2. EXTREMITIES: Without edema. LABORATORY DATA: There is no EKG available. Laboratories include elevated LFTs. Troponin is negative x1. The hemoglobin is 12. IMPRESSION: 1. Pancreatic cancer. 2. Elevated liver function tests. 3. Status post percutaneous transluminal coronary angioplasty and stent of all three coronary arteries. 4. Hypercholesterolemia. 5. History of paroxysmal atrial fibrillation, which has remained in normal sinus rhythm. PLAN: Given these findings, there does not appear to be cardiac contraindications of possible endoscopy and ERCP. However, we will obtain an EKG today. She has had an MRI today. Erik Troy MD
--- NOTE | 2018-09-10 17:23 | CP.PCM.CON ---
<Tony Martinez - Last Filed: 09/10/18 18:25> History of Present Illness - History of Present Illness History of Present Illness: HPB Surgery Consult note. Dr. Cronin 78yo F with PMHx of Non-Hodgkin Lymphoma s/p chemo in remission 2006, CAD s/p coronary stents, A.Fib, HTN, DM, COPD who was sent in by PMD due to abnormal labs and jaundice. Patient states that she did not know she has been slowly getting jaundiced over the past few weeks. Only reports some mild 'heaviness" which she felt over the epigastric region over the past month. Denies any Abd pain. No N/V/D. No chest pain. No SOB. No F/C. No pruritis. No urinary complaints. Denies any recent unintentional weight loss, no Anorexia. PMHx: Non-Hodgkin Lymphoma s/p chemo in remission 2006, CAD s/p coronary stents, A.Fib, HTN, DM, COPD PSHx: Prior Port-a-cath (removed). Coronary stents x6 at [facility] Family Hx: non-contributory Social Hx: Denies any Tobacco use. Denies any ETOH use. Denies any illicit drugs NKDA Review of Systems - Review of Systems All systems: reviewed and no additional remarkable complaints except - Constitutional Constitutional: As Per HPI. absent: Chills, Fever Past Patient History - Infectious Disease Hx of Infectious Diseases: None - Past Medical History & Family History Past Family History: Reviewed and not pertinent - Past Social History Smoking Status: Former Smoker Alcohol: None Drugs: Denies - CARDIAC Hx Cardiac Disorders: Yes Hx Cardia Arrhythmia: Yes (Afib) Hx Hypercholesterolemia: Yes Hx Hypertension: Yes Hx Pacemaker: No Other/Comment: cardiac stent x 6 - PULMONARY Hx Respiratory Disorders: Yes Hx Asthma: Yes Hx Chronic Obstructive Pulmonary Disease (COPD): Yes - NEUROLOGICAL Hx Neurological Disorder: No - HEENT Hx HEENT Problems: No - RENAL Hx Chronic Kidney Disease: No - ENDOCRINE/METABOLIC Hx Diabetes Mellitus Type 2: Yes - HEMATOLOGICAL/ONCOLOGICAL Hx Blood Disorders: Yes Other/Comment: hx of lymphoma had chemo therapy 2007 - INTEGUMENTARY Hx Dermatological Problems: No - MUSCULOSKELETAL/RHEUMATOLOGICAL Hx Musculoskeletal Disorders: Yes Hx Degenerative Joint Disease: Yes Hx Falls: No - GASTROINTESTINAL Hx Gastrointestinal Disorders: No - GENITOURINARY/GYNECOLOGICAL Hx Genitourinary Disorders: No - PSYCHIATRIC Hx Emotional Abuse: No Hx Physical Abuse: No Hx Substance Use: No - SURGICAL HISTORY Hx Surgeries: Yes Hx Cardiac Catheterization: Yes (stents) Hx Coronary Stent: Yes - ANESTHESIA Hx Anesthesia Reactions: Yes Hx Malignant Hyperthermia: No Meds Allergies/Adverse Reactions: Allergies Allergy/AdvReac Type Severity Reaction Status Date / Time No Known Allergies Allergy Verified 11/01/15 04:36 - Medications Medications: Current Medications Albuterol/Ipratropium (Duoneb 3 Mg/0.5 Mg (3 Ml) Ud) 3 ml IH [id number] PRN PRN Reason: Shortness of Breath Aspirin (Ecotrin) 81 mg PO DAILY [facility] Last Admin: 09/10/18 11:36 Dose: 81 mg Atorvastatin Calcium (Lipitor) 10 mg PO DIN [facility] Diltiazem HCl (Cardizem Cd) 180 mg PO DAILY [facility] Last Admin: 09/10/18 11:35 Dose: 180 mg Doxazosin Mesylate (Cardura) 2 mg PO HS [facility] Last Admin: 09/09/18 22:47 Dose: 2 mg Sodium Chloride (Sodium Chloride 0.9%) 1,000 mls @ 60 mls/hr IV .[id number] [facility] Last Admin: 09/09/18 22:25 Dose: 60 mls/hr Ondansetron HCl (Zofran Inj) 4 mg IVP Q4H PRN PRN Reason: Nausea/Vomiting Pantoprazole Sodium (Protonix Ec Tab) 40 mg PO ACB [facility] Sotalol HCl (Betapace) 80 mg PO BID [facility] Last Admin: 09/10/18 11:36 Dose: 80 mg Tiotropium [place] (Spiriva) 18 mcg IH DAILY [facility] Last Admin: 09/10/18 11:36 Dose: 18 mcg Physical Exam - Constitutional Appears: Non-toxic, No Acute Distress - Head Exam Head Exam: ATRAUMATIC, NORMAL INSPECTION, NORMOCEPHALIC - Eye Exam Eye Exam: EOMI, Scleral icterus - ENT Exam ENT Exam: Mucous Membranes Moist - Neck Exam Neck exam: Negative for: Tenderness - Respiratory Exam Respiratory Exam: NORMAL BREATHING PATTERN. absent: Accessory Muscle Use, Respiratory Distress - Cardiovascular Exam Cardiovascular Exam: RRR. absent: JVD - GI/Abdominal Exam GI & Abdominal Exam: Soft. absent: Distended, Firm, Guarding, Rebound, Rigid, Tenderness Additional comments: jaundiced. No abdominal distention. No tenderness to palpation. - Extremities Exam Extremities exam: Positive for: normal inspection. Negative for: calf tenderness - Neurological Exam Neurological exam: Alert, Oriented x3 - Psychiatric Exam Psychiatric exam: Normal Affect, Normal Mood - Skin Additional comments: Jaundice Results - Vital Signs Recent Vital Signs: Last Vital Signs Temp 98 F 09/10/18 06:00 Pulse 77 09/10/18 06:00 Resp 20 09/10/18 06:00 BP 145/60 09/10/18 06:00 Pulse Ox 95 09/10/18 06:00 - Labs Result Diagrams: 09/10/18 06:34 09/10/18 06:34 Labs: Laboratory Results - last 24 hr 09/09/18 09/09/18 09/09/18 18:00 18:00 18:00 WBC 8.6 RBC 4.41 Hgb 13.8 Hct 40.8 MCV 92.5 MCH 31.3 MCHC 33.8 RDW 15.8 H Plt Count 199 MPV 13.4 H Neut % (Auto) 67.1 Lymph % (Auto) 24.8 Kaufman % (Auto) 7.0 H Eos % (Auto) 0.9 L Baso % (Auto) 0.2 Lymph # (Auto) 2.1 Kaufman # (Auto) 0.6 Eos # (Auto) 0.1 Baso # (Auto) 0.02 Absolute Neuts (auto) 5.73 PT 16.0 H INR 1.44 APTT 32.1 Sodium 139 Potassium 3.7 Chloride 105 Carbon Dioxide 24 Anion Gap 14 BUN 10 Creatinine 0.6 L Est GFR ( Amer) > 60 Est GFR (Non-Af Amer) > 60 POC Glucose (mg/dL) Random Glucose 110 Calcium 9.7 Phosphorus Magnesium 1.7 Total Bilirubin 10.1 H Direct Bilirubin GGT AST 121 H ALT 147 H Alkaline Phosphatase 364 H Troponin I < 0.01 D Total Protein 8.0 Albumin 4.0 Globulin 4.0 Albumin/Globulin Ratio 1.0 L Lipase 345 H Carcinoembryonic Ag CA 19-9 Antigen 09/09/18 09/10/18 09/10/18 18:00 06:34 06:34 WBC 6.8 D RBC 4.19 Hgb 12.9 Hct 39.2 MCV 93.6 MCH 30.8 MCHC 32.9 RDW 15.9 H Plt Count 171 MPV 13.1 H Neut % (Auto) 64.6 Lymph % (Auto) 24.2 Kaufman % (Auto) 9.2 H Eos % (Auto) 1.9 Baso % (Auto) 0.1 Lymph # (Auto) 1.6 Kaufman # (Auto) 0.6 Eos # (Auto) 0.1 Baso # (Auto) 0.01 Absolute Neuts (auto) 4.37 PT INR APTT Sodium 141 Potassium 3.7 Chloride 106 Carbon Dioxide 25 Anion Gap 13 BUN 9 Creatinine 0.6 L Est GFR ( Amer) > 60 Est GFR (Non-Af Amer) > 60 POC Glucose (mg/dL) Random Glucose 104 Calcium 9.3 Phosphorus 3.3 Magnesium 1.6 L Total Bilirubin 9.5 H Direct Bilirubin 7.7 H GGT AST 113 H ALT 135 H Alkaline Phosphatase 293 H Troponin I Total Protein 7.4 Albumin 3.6 Globulin 3.8 Albumin/Globulin Ratio 0.9 L Lipase Carcinoembryonic Ag CA 19-9 Antigen 09/10/18 09/10/18 09/10/18 06:34 06:34 06:40 WBC RBC Hgb Hct MCV MCH MCHC RDW Plt Count MPV Neut % (Auto) Lymph % (Auto) Kaufman % (Auto) Eos % (Auto) Baso % (Auto) Lymph # (Auto) Kaufman # (Auto) Eos # (Auto) Baso # (Auto) Absolute Neuts (auto) PT INR APTT Sodium Potassium Chloride Carbon Dioxide Anion Gap BUN Creatinine Est GFR ( Amer) Est GFR (Non-Af Amer) POC Glucose (mg/dL) 95 Random Glucose Calcium Phosphorus Magnesium Total Bilirubin Direct Bilirubin GGT 482 H AST ALT Alkaline Phosphatase Troponin I Total Protein Albumin Globulin Albumin/Globulin Ratio Lipase Carcinoembryonic Ag 2.4 CA 19-9 Antigen < 1.4 09/10/18 09/10/18 11:28 16:06 WBC RBC Hgb Hct MCV MCH MCHC RDW Plt Count MPV Neut % (Auto) Lymph % (Auto) Kaufman % (Auto) Eos % (Auto) Baso % (Auto) Lymph # (Auto) Kaufman # (Auto) Eos # (Auto) Baso # (Auto) Absolute Neuts (auto) PT INR APTT Sodium Potassium Chloride Carbon Dioxide Anion Gap BUN Creatinine Est GFR ( Amer) Est GFR (Non-Af Amer) POC Glucose (mg/dL) 104 115 H Random Glucose Calcium Phosphorus Magnesium Total Bilirubin Direct Bilirubin GGT AST ALT Alkaline Phosphatase Troponin I Total Protein Albumin Globulin Albumin/Globulin Ratio Lipase Carcinoembryonic Ag CA 19-9 Antigen Assessment & Plan - Assessment and Plan (Free Text) Assessment: 78yo F with PMHx of Non-Hodgkin Lymphoma s/p chemo in remission 2006, CAD s/p coronary stents, A.Fib, HTN, DM, COPD here with abnormal liver enzymes on outpatient labs, jaundice. - CT noted to have evidence of a pancreatic head mass which abuts the IVC. Also evidence of possible metastatic disease to liver. Plan: - We will follow up MRCP - The mass does not seem amenable for any surgical intervention/resection - f/u GI plans for possible endoscopic bx or biliarty stent - f/u Heme/onc recs Further recs as per Dr. Dawn PGY2 surgery <Leoncio Shelton - Last Filed: 09/12/18 10:10> Meds - Medications Medications: Current Medications Albuterol/Ipratropium (Duoneb 3 Mg/0.5 Mg (3 Ml) Ud) 3 ml IH [id number] PRN PRN Reason: Shortness of Breath Aspirin (Ecotrin) 81 mg PO DAILY [facility] Last Admin: 09/11/18 11:48 Dose: 81 mg Atorvastatin Calcium (Lipitor) 10 mg PO DIN [facility] Last Admin: 09/11/18 17:50 Dose: 10 mg Diltiazem HCl (Cardizem Cd) 180 mg PO DAILY [facility] Last Admin: 09/11/18 11:56 Dose: 180 mg Doxazosin Mesylate (Cardura) 2 mg PO HS [facility] Last Admin: 09/11/18 21:50 Dose: 2 mg Sodium Chloride (Sodium Chloride 0.9%) 1,000 mls @ 60 mls/hr IV .[id number] [facility] Last Admin: 09/11/18 11:51 Dose: 60 mls/hr Ondansetron HCl (Zofran Inj) 4 mg IVP Q4H PRN PRN Reason: Nausea/Vomiting Pantoprazole Sodium (Protonix Ec Tab) 40 mg PO ACB [facility] Last Admin: 09/11/18 11:48 Dose: 40 mg Sotalol HCl (Betapace) 80 mg PO BID [facility] Last Admin: 09/11/18 17:50 Dose: 80 mg Tiotropium [place] (Spiriva) 18 mcg IH DAILY [facility] Last Admin: 09/11/18 11:48 Dose: 18 mcg Results - Vital Signs Recent Vital Signs: Last Vital Signs Temp 98.5 F 09/12/18 06:00 Pulse 71 09/12/18 06:00 Resp 18 09/12/18 06:00 BP 135/57 L 09/12/18 06:00 Pulse Ox 94 L 09/12/18 06:00 - Labs Result Diagrams: 09/12/18 07:00 09/12/18 07:00 Labs: Laboratory Results - last 24 hr 09/11/18 09/11/18 09/11/18 16:14 16:17 21:26 WBC RBC Hgb Hct MCV MCH MCHC RDW Plt Count MPV Neut % (Auto) Lymph % (Auto) Kaufman % (Auto) Eos % (Auto) Baso % (Auto) Lymph # (Auto) Kaufman # (Auto) Eos # (Auto) Baso # (Auto) Absolute Neuts (auto) PT 17.4 H INR 1.57 APTT Sodium Potassium Chloride Carbon Dioxide Anion Gap BUN Creatinine Est GFR ( Amer) Est GFR (Non-Af Amer) POC Glucose (mg/dL) 140 H 117 H Random Glucose Calcium Total Bilirubin AST ALT Alkaline Phosphatase Total Protein Albumin Globulin Albumin/Globulin Ratio 09/12/18 09/12/18 09/12/18 06:38 07:00 07:00 WBC 8.0 D RBC 3.92 Hgb 12.2 Hct 36.5 MCV 93.1 MCH 31.1 MCHC 33.4 RDW 16.3 H Plt Count 167 MPV 12.9 H Neut % (Auto) 71.2 H Lymph % (Auto) 15.2 L Kaufman % (Auto) 10.8 H Eos % (Auto) 2.7 Baso % (Auto) 0.1 Lymph # (Auto) 1.2 Kaufman # (Auto) 0.9 H Eos # (Auto) 0.2 Baso # (Auto) 0.01 Absolute Neuts (auto) 5.70 PT INR APTT Sodium 141 Potassium 3.4 L Chloride 109 H Carbon Dioxide 25 Anion Gap 10 BUN 8 Creatinine 0.6 L Est GFR ( Amer) > 60 Est GFR (Non-Af Amer) > 60 POC Glucose (mg/dL) 94 Random Glucose 112 H Calcium 8.6 Total Bilirubin 9.4 H AST 105 H ALT 127 H Alkaline Phosphatase 275 H Total Protein 7.0 Albumin 3.3 Globulin 3.7 Albumin/Globulin Ratio 0.9 L 09/12/18 07:00 WBC RBC Hgb Hct MCV MCH MCHC RDW Plt Count MPV Neut % (Auto) Lymph % (Auto) Kaufman % (Auto) Eos % (Auto) Baso % (Auto) Lymph # (Auto) Kaufman # (Auto) Eos # (Auto) Baso # (Auto) Absolute Neuts (auto) PT 15.9 H INR 1.41 APTT 31.0 Sodium Potassium Chloride Carbon Dioxide Anion Gap BUN Creatinine Est GFR ( Amer) Est GFR (Non-Af Amer) POC Glucose (mg/dL) Random Glucose Calcium Total Bilirubin AST ALT Alkaline Phosphatase Total Protein Albumin Globulin Albumin/Globulin Ratio Assessment & Plan - Assessment and Plan (Free Text) Assessment: 78 yo female with onset of jaundice found to have a head of pancreas mass. CT scan abdomen showed 3 cm head of pancreas mass with portal vein invasion and 1-2 probable metastasis to the liver. Unfortunately, she is not a candidate for surgery, as it will not improve her survival. I had a 15-20 minute discussion with the patient regarding chemotherapy,as she has been treated with chemo in e past for lymphoma. I suggested she discuss further with Dr Ta. All medical record entries made by the surgical aides teacher were at my direction and personally dictated by me. I have reviewed the chart and agree that the record accurately reflects my personal performance of the history, physical exam, medical decision making, and the department course for this patient. I rosenberg ve also personally directed, reviewed, and agree with plan of care
--- NOTE | 2018-09-10 18:33 | MRI ---
Date of service: 09/10/2018 PROCEDURE: Magnetic Resonance Cholangiopancreatography HISTORY: COMPARISON: CT abdomen/pelvis 09/09/2018 TECHNIQUE: Multiplanar, multisequence MR images of the abdomen were obtained, including heavily T2 weighted MRCP images of the biliary system. Rotating maximum intensity projection images of the biliary system were generated. FINDINGS: MRCP: Dilated common bile duct up to approximately 12 mm diameter. There is sharp cut off of the distal common bile duct at the level of the pancreatic head. There is intrahepatic biliary ductal dilatation. There is pancreatic ductal dilatation. LIVER: Normal size, contour and signal intensity. Multiple small hepatic masses, low T1 high T2 signal. Largest approximately 12 mm. GALLBLADDER: No evidence of cholelithiasis. No mural thickening or pericholecystic fluid/edema. SPLEEN: Unremarkable. PANCREAS: Irregular mass in the pancreatic measuring roughly 1.9 x 4.0 cm. There is no encasement of the SMA. There is no encasement of the portal vein. There is no evidence of portal venous thrombosis or splenic venous thrombosis. In the tail of the pancreas there is a rounded low T1 high T2 signal mass measuring 12 mm diameter, nonspecific. ADRENALS: Unremarkable. KIDNEYS: 17 mm right upper pole renal cyst and 12 mm right lower pole renal cyst. No hydronephrosis AORTA: No aneurysm. ASCITES: None. OTHER FINDINGS: None. IMPRESSION: Irregular pancreatic head mass with intra and extrahepatic biliary ductal dilatation and sharp cut off of the distal common bile duct at the level of the pancreatic head. There is pancreatic ductal dilatation. There are multiple small hepatic masses suspicious for metastasis. There is a small rounded cystic mass in the tail of the pancreas common nonspecific.
--- NOTE | 2018-09-11 00:48 | CARD ---
APPROVED REPORT Date of service: 09/10/2018 EKG Measurement Heart [id number] <Conclusion> Normal sinus rhythm Left axis deviation Possible Septal infarct, age undetermined CCR Abnormal ECG
[2018-09-11 07:08] LABS: BASO # 0.01 K/mm3 (0.0-2.0); BASO % 0.2 % (0.0-3.0); EOS # 0.2 (0.0-0.7); EOS % 2.4 % (1.5-5.0); HEMOGLOBIN 12.5 g/dL (12.0-16.0); LYMPH # 1.7 (1.2-3.4); LYMPH % 26.8 % (22.0-35.0); MEAN CELL VOLUME 93.3 fl (80.0-105.0); MEAN CORPUSCULAR HEMOGLOBIN 30.9 pg (25.0-35.0); MEAN CORPUSCULAR HGB CONC 33.2 g/dl (31.0-37.0); MEAN PLATELET VOLUME 12.6 fl (7.0-11.0); MONO # 0.5 (0.1-0.6); MONO % 7.9 % (1.0-6.0); RBC 4.04 10^6/uL (3.5-6.1); RED CELL DISTRIBUTION WIDTH 16.1 % (11.5-14.5); WHITE BLOOD COUNT 6.4 10^3/uL (4.5-11.0)
[2018-09-11 07:18] LABS: ALB/GLOB RATIO 0.9 (1.1-1.8); ALBUMIN 3.4 g/dL (3.0-4.8); ALT/SGPT 121 U/L (7-56); AST/SGOT 97 U/L (14-36); BLOOD UREA NITROGEN 8 mg/dL (7-21); CALCIUM 8.9 mg/dL (8.4-10.5); GFR NON-AFRICAN AMERICAN > 60
[2018-09-11 09:15] LABS: INR 1.49; PROTHROMBIN TIME 16.8 SECONDS (9.4-12.5)
[2018-09-11] MEDS: Tiotropium 18 mcg Cap For Inhalation IH SCH (11:48)
[2018-09-11] MEDS: Pantoprazole 40 mg EC Tab PO SCH (11:48)
[2018-09-11] MEDS: Sodium Chloride 0.9% 1,000 ML IV SCH (11:51)
[2018-09-11] MEDS: diltiaZEM 180 mg/24 Hours CD Cap PO SCH (11:56)
--- NOTE | 2018-09-11 12:02 | CP.PCM.PN ---
<ThackerReginald L - Last Filed: 09/11/18 14:38> Subjective - Date & Time of Evaluation Date of Evaluation: 09/11/18 Time of Evaluation: 08:00 - Subjective Subjective: Resident Progress Note for Surgery: Dr. Shelton Patient examined at bedside. No acute events overnight. Tolerating PO intake. Admits to some abdominal pain. Denies fever, chills, nausea, vomiting. Objective - Vital Signs/Intake and Output Vital Signs (last 24 hours): Temp Pulse Resp BP Pulse Ox 98.1 F 63 20 105/48 L 96 09/11/18 06:00 09/11/18 06:00 09/11/18 06:00 09/11/18 06:00 09/11/18 06:00 Intake and Output: 09/11/18 09/11/18 06:59 18:59 Intake Total 180 Balance 180 - Medications Medications: Current Medications Albuterol/Ipratropium (Duoneb 3 Mg/0.5 Mg (3 Ml) Ud) 3 ml IH [id number] PRN PRN Reason: Shortness of Breath Aspirin (Ecotrin) 81 mg PO DAILY [facility] Last Admin: 09/10/18 11:36 Dose: 81 mg Atorvastatin Calcium (Lipitor) 10 mg PO DIN [facility] Last Admin: 09/10/18 18:23 Dose: 10 mg Diltiazem HCl (Cardizem Cd) 180 mg PO DAILY [facility] Last Admin: 09/10/18 11:35 Dose: 180 mg Doxazosin Mesylate (Cardura) 2 mg PO HS [facility] Last Admin: 09/10/18 22:54 Dose: 2 mg Sodium Chloride (Sodium Chloride 0.9%) 1,000 mls @ 60 mls/hr IV .[id number] [facility] Last Admin: 09/09/18 22:25 Dose: 60 mls/hr Ondansetron HCl (Zofran Inj) 4 mg IVP Q4H PRN PRN Reason: Nausea/Vomiting Pantoprazole Sodium (Protonix Ec Tab) 40 mg PO ACB [facility] Sotalol HCl (Betapace) 80 mg PO BID [facility] Last Admin: 09/10/18 18:23 Dose: 80 mg Tiotropium [place] (Spiriva) 18 mcg IH DAILY [facility] Last Admin: 09/10/18 11:36 Dose: 18 mcg - Labs Labs: 09/11/18 06:50 02/07/19 06:50 PT 16.8 SECONDS (9.4-12.5) H 09/11/18 09:00 INR 1.49 09/11/18 09:00 APTT 32.1 Seconds (26.9-38.3) 09/09/18 18:00 - Additional Findings Additional findings: - Constitutional Appears: Non-toxic, No Acute Distress - Head Exam Head Exam: ATRAUMATIC, NORMOCEPHALIC - Eye Exam Eye Exam: EOMI, Scleral icterus - ENT Exam ENT Exam: Mucous Membranes Moist - Respiratory Exam Respiratory Exam: NORMAL BREATHING PATTERN. absent: Accessory Muscle Use, Respiratory Distress - Cardiovascular Exam Cardiovascular Exam: RRR. absent: JVD - GI/Abdominal Exam GI & Abdominal Exam: Soft. absent: Distended, Firm, Guarding, Rebound, Rigid, Tenderness - Extremities Exam Extremities exam: Positive for: normal inspection. Negative for: calf tenderness - Neurological Exam Neurological exam: Alert, Oriented x3 - Psychiatric Exam Psychiatric exam: Normal Affect, Normal Mood - Skin Additional comments: Jaundice Assessment and Plan - Assessment and Plan (Free Text) Assessment: Patient is a 78 year old female with past medical history of Non-Hodgkin L ymphoma s/p chemo in remission 2006, CAD s/p coronary stents, A.Fib, HTN, DM, COPD admitted for abnormal liver enzymes on outpatient labs, jaundice. Plan: - CT showed evidence of a pancreatic head mass which abuts the IVC, possible metastatic disease to liver - MRCP shows irregular pancreatic mass 1.9 x 4.0 cm, no encasement of portal vein or SMA, small hepatic masses suspicious for mets - mass does not seem amenable for any surgical intervention/resection - f/u GI plans for possible endoscopic bx or biliary stent - further recommendations per Dr. Bhatti PGY-1 <Leoncio Shelton - Last Filed: 09/12/18 10:26> Objective - Vital Signs/Intake and Output Vital Signs (last 24 hours): Temp Pulse Resp BP Pulse Ox 98.5 F 71 18 135/57 L 94 L 09/12/18 06:00 09/12/18 06:00 09/12/18 06:00 09/12/18 06:00 09/12/18 06:00 - Medications Medications: Current Medications Albuterol/Ipratropium (Duoneb 3 Mg/0.5 Mg (3 Ml) Ud) 3 ml IH [id number] PRN PRN Reason: Shortness of Breath Aspirin (Ecotrin) 81 mg PO DAILY [facility] Last Admin: 09/11/18 11:48 Dose: 81 mg Atorvastatin Calcium (Lipitor) 10 mg PO DIN [facility] Last Admin: 09/11/18 17:50 Dose: 10 mg Diltiazem HCl (Cardizem Cd) 180 mg PO DAILY [facility] Last Admin: 09/11/18 11:56 Dose: 180 mg Doxazosin Mesylate (Cardura) 2 mg PO HS [facility] Last Admin: 09/11/18 21:50 Dose: 2 mg Sodium Chloride (Sodium Chloride 0.9%) 1,000 mls @ 60 mls/hr IV .[id number] [facility] Last Admin: 09/11/18 11:51 Dose: 60 mls/hr Ondansetron HCl (Zofran Inj) 4 mg IVP Q4H PRN PRN Reason: Nausea/Vomiting Pantoprazole Sodium (Protonix Ec Tab) 40 mg PO ACB [facility] Last Admin: 09/11/18 11:48 Dose: 40 mg Sotalol HCl (Betapace) 80 mg PO BID [facility] Last Admin: 09/11/18 17:50 Dose: 80 mg Tiotropium [place] (Spiriva) 18 mcg IH DAILY [facility] Last Admin: 09/11/18 11:48 Dose: 18 mcg - Labs Labs: 09/12/18 07:00 09/12/18 07:00 PT 15.9 SECONDS (9.4-12.5) H 09/12/18 07:00 INR 1.41 09/12/18 07:00 APTT 31.0 Seconds (26.9-38.3) 09/12/18 07:00 Assessment and Plan - Assessment and Plan (Free Text) Assessment: patient with advanced pancreas cancer, unfortunately not a surgical candidate. Will defer care to medical oncology All medical record entries made by the president and cmo were at my direction and personally dictated by me. I have reviewed the chart and agree that the record accurately reflects my personal performance of the history, physical exam, medical decision making, and the department course for this patient. I have also personally directed, reviewed, and agree with plan of care
--- NOTE | 2018-09-11 13:42 | CP.PCM.PN ---
<Rehan Silveira - Last Filed: 09/11/18 13:33> Subjective - Date & Time of Evaluation Date of Evaluation: 09/11/18 Time of Evaluation: 13:33 - Subjective Subjective: PGY-2 heme/onc progress note for Dr Cagle No acute events noted overnight. Patient resting comfortably in bed. Inquired about her diagnosis and prognosis. Complained of mild abdominal discomfort. Wished to have treatment done outpatient as she states she is not symptomatic. Objective - Vital Signs/Intake and Output Vital Signs (last 24 hours): Temp Pulse Resp BP Pulse Ox 98.1 F 72 20 150/52 L 96 09/11/18 06:00 09/11/18 11:57 09/11/18 06:00 09/11/18 11:57 09/11/18 06:00 Intake and Output: 09/11/18 09/11/18 06:59 18:59 Intake Total 180 Balance 180 - Medications Medications: Current Medications Albuterol/Ipratropium (Duoneb 3 Mg/0.5 Mg (3 Ml) Ud) 3 ml IH [id number] PRN PRN Reason: Shortness of Breath Aspirin (Ecotrin) 81 mg PO DAILY [facility] Last Admin: 09/11/18 11:48 Dose: 81 mg Atorvastatin Calcium (Lipitor) 10 mg PO DIN [facility] Last Admin: 09/10/18 18:23 Dose: 10 mg Diltiazem HCl (Cardizem Cd) 180 mg PO DAILY [facility] Last Admin: 09/11/18 11:56 Dose: 180 mg Doxazosin Mesylate (Cardura) 2 mg PO HS [facility] Last Admin: 09/10/18 22:54 Dose: 2 mg Sodium Chloride (Sodium Chloride 0.9%) 1,000 mls @ 60 mls/hr IV .[id number] [facility] Last Admin: 09/11/18 11:51 Dose: 60 mls/hr Ondansetron HCl (Zofran Inj) 4 mg IVP Q4H PRN PRN Reason: Nausea/Vomiting Pantoprazole Sodium (Protonix Ec Tab) 40 mg PO ACB [facility] Last Admin: 09/11/18 11:48 Dose: 40 mg Sotalol HCl (Betapace) 80 mg PO BID [facility] Last Admin: 09/11/18 11:57 Dose: 80 mg Tiotropium [place] (Spiriva) 18 mcg IH DAILY [facility] Last Admin: 09/11/18 11:48 Dose: 18 mcg - Labs Labs: 09/11/18 06:50 09/11/18 06:50 PT 16.8 SECONDS (9.4-12.5) H 09/11/18 09:00 INR 1.49 09/11/18 09:00 APTT 32.1 Seconds (26.9-38.3) 09/09/18 18:00 - Additional Findings Additional findings: - Constitutional Appears: Well, Non-toxic, No Acute Distress Additional comments: obese body habitus - Head Exam Head Exam: ATRAUMATIC, NORMAL INSPECTION - Eye Exam Eye Exam: EOMI, Normal appearance, PERRL, Scleral icterus - ENT Exam ENT Exam: Mucous Membranes Moist - Neck Exam Neck exam: Positive for: Normal Inspection. Negative for: Lymphadenopathy, Tenderness - Respiratory Exam Respiratory Exam: Clear to Auscultation Bilateral, NORMAL BREATHING PATTERN. absent: Rales, Rhonchi, Wheezes - Cardiovascular Exam Cardiovascular Exam: Irregular Rhythm, +S1, +S2, Systolic Murmur. absent: T achycardia, JVD - GI/Abdominal Exam GI & Abdominal Exam: Normal Bowel Sounds, Organomegaly, Soft. absent: Guarding, Rebound, Tenderness Additional comments: hepatomegaly - liver palpated well below the costal margin - Extremities Exam Extremities exam: Positive for: full ROM, normal capillary refill, normal inspection, pedal pulses present - Neurological Exam Neurological exam: Alert, Oriented x3 - Psychiatric Exam Psychiatric exam: Normal Affect, Normal Mood - Skin Skin Exam: Dry, Intact, Warm Additional comments: juandice Assessment and Plan - Assessment and Plan (Free Text) Plan: Mrs Dominguez is a 78 year old female with a PMHx of lymphoma s/p chemotherapy in 2006, CAD with 6 stents, A-Fib, HTN, NIDDM2, COPD who was sent to the ER by her PMD for juandice and abdominal discomfort: Suspected Pancreatic Head Neoplasm -elevated LFTs as well as direct bilirubin and GGT consistent with obstructive hyperbilirubinemia possibly due to pancreatic head mass -cea and ca 19-9 markers are both normal -GI on board, Dr Carias * plan for EUS ERCP stent on 09/12/18 and fine needle biopsy -consult IR Dr Erik Parham so patient can be known to him in event a percutaneous stent/drain will need to be placed in future as well as possibility of core needle biopsy in future -consult hepatobiliary surgeon, Dr Cronin so he may assess issue of operability * with mets to liver and per Dr Cronin there is encasement of portal vein (MRCP does not state this) surgical resection is not possible Imaging: -MRCP abdomen w/ and w/o contrast * Irregular pancreatic head mass with intra and extrahepatic biliary ductal dilatation and sharp cut off of the distal common bile duct at the level of the pancreatic head. There is pancreatic ductal dilatation. There are multiple small hepatic masses suspicious for metastasis. There is a small rounded cystic mass in the tail of the pancreas common nonspecific. -CT abd/pelvis w/ iv contrast 09/09/2018: * Findings compatible w/ 4 x3 cm neoplasm in the head of the pancreas. F/u with MRI is recommended. prominent GB size may be consistent w/ GB hydrops. Intrahepatic/extrahepatic biliary dilatation is present. Small hiatal hernia noted. Diverticulosis coli in sigmoid and rectosigmoid colon without evidence of diverticulitis. A small umbilical hernia which contains fat. Extensive atherosclerotic vascular plaquing. Old anterior wedge compression deformity of L2 and L3. Advanced degenerative disc disease at L5-S1. Focal pneumonic consolidation vs. atelectasis in the anteromedial L mid-lower thorax. -Abdominal Ultrasound 09/09/2018: * 1. fatty liver 2. moderate intra and extrahepatic biliary ductal dilation and gallbladder distension with layering sludge, no sonographic evidence for choledocholithiasis 3. apparent 1.1cm cyst in head of pancreas and 1.7cm lesion in head which may represent calcification, however evaluation if limited -PET scan 05/2018: * emphysematous changes; several left lung pulm nodules measuring 9mm, 7mm, 4mm, 6mm; mild to no increased FDG uptake; pancreatic atrophy - 8mm faintly visualized hypodensity at pancreatic tail re-identified, uncertain etiology Hx of Non-Hodgkins Lymphoma -in remission -s/p chemotherapy in 2006 Seen and discussed with Dr Cagle <Tai Cagle P - Last Filed: 09/16/18 16:18> Objective - Vital Signs/Intake and Output Vital Signs (last 24 hours): Temp Pulse Resp BP Pulse Ox 97.5 F L 71 20 116/82 96 09/13/18 08:09 09/13/18 08:09 09/13/18 08:09 09/13/18 10:32 09/13/18 08:09 - Labs Labs: 09/13/18 07:00 09/13/18 07:00 PT 15.9 SECONDS (9.4-12.5) H 09/12/18 07:00 INR 1.41 09/12/18 07:00 APTT 31.0 Seconds (26.9-38.3) 09/12/18 07:00 Attending/Attestation - Attestation I have personally seen and examined this patient.: Yes I have fully participated in the care of the patient.: Yes I have reviewed all pertinent clinical information, including history, physical exam and plan: Yes
--- NOTE | 2018-09-11 15:00 | CP.PCM.PN ---
<Zaheer Pepper - Last Filed: 09/11/18 15:14> Subjective - Date & Time of Evaluation Date of Evaluation: 09/11/18 Time of Evaluation: 06:20 - Subjective Subjective: Pt seen and examined at bedside. Pt received MRCP, will receive ERCP tomorrow. Objective - Vital Signs/Intake and Output Vital Signs (last 24 hours): Temp Pulse Resp BP Pulse Ox 98.1 F 72 20 150/52 L 96 09/11/18 06:00 09/11/18 11:57 09/11/18 06:00 09/11/18 11:57 09/11/18 06:00 Intake and Output: 09/11/18 09/11/18 06:59 18:59 Intake Total 180 Balance 180 - Medications Medications: Current Medications Albuterol/Ipratropium (Duoneb 3 Mg/0.5 Mg (3 Ml) Ud) 3 ml IH [id number] PRN PRN Reason: Shortness of Breath Aspirin (Ecotrin) 81 mg PO DAILY [facility] Last Admin: 09/11/18 11:48 Dose: 81 mg Atorvastatin Calcium (Lipitor) 10 mg PO DIN [facility] Last Admin: 09/10/18 18:23 Dose: 10 mg Diltiazem HCl (Cardizem Cd) 180 mg PO DAILY [facility] Last Admin: 09/11/18 11:56 Dose: 180 mg Doxazosin Mesylate (Cardura) 2 mg PO HS [facility] Last Admin: 09/10/18 22:54 Dose: 2 mg Sodium Chloride (Sodium Chloride 0.9%) 1,000 mls @ 60 mls/hr IV .[id number] [facility] Last Admin: 09/11/18 11:51 Dose: 60 mls/hr Ondansetron HCl (Zofran Inj) 4 mg IVP Q4H PRN PRN Reason: Nausea/Vomiting Pantoprazole Sodium (Protonix Ec Tab) 40 mg PO ACB [facility] Last Admin: 09/11/18 11:48 Dose: 40 mg Sotalol HCl (Betapace) 80 mg PO BID [facility] Last Admin: 09/11/18 11:57 Dose: 80 mg Tiotropium [place] (Spiriva) 18 mcg IH DAILY [facility] Last Admin: 09/11/18 11:48 Dose: 18 mcg - Labs Labs: 09/11/18 06:50 09/11/18 06:50 PT 16.8 SECONDS (9.4-12.5) H 09/11/18 09:00 INR 1.49 09/11/18 09:00 APTT 32.1 Seconds (26.9-38.3) 09/09/18 18:00 - Constitutional Appears: No Acute Distress - Head Exam Head Exam: ATRAUMATIC, NORMOCEPHALIC - Eye Exam Eye Exam: EOMI - ENT Exam ENT Exam: Mucous Membranes Moist - Neck Exam Neck Exam: Full ROM - Respiratory Exam Respiratory Exam: Clear to Ausculation Bilateral, NORMAL BREATHING PATTERN. absent: Accessory Muscle Use, Respiratory Distress - Cardiovascular Exam Cardiovascular Exam: RRR, +S1, +S2. absent: Diastolic murmur, Murmur - GI/Abdominal Exam GI & Abdominal Exam: Soft. absent: Tenderness - Extremities Exam Extremities Exam: Full ROM. absent: Calf Tenderness, Pedal Edema, Tenderness - Back Exam Back Exam: absent: tenderness - Neurological Exam Neurological Exam: Alert, Awake, Oriented x3 - Psychiatric Exam Psychiatric exam: Normal Affect, Normal Mood - Skin Skin Exam: Dry, Intact, Normal Color, Warm Assessment and Plan - Assessment and Plan (Free Text) Assessment: Pt is a 78 yo female with PMH HTN, atrial fibrillation, DM2, COPD, Lymphoma s/p chemotherapy in 2006, who presented to the ED for abnormal LFTs, jaundice, transaminitis, and hyperbilirubinemia, found to have a suspected pancreatic neoplasm on CT scan. Plan: Suspected Pancreatic Neoplasm - Lipase 345, CA 19-9 <1.4, CEA 2.4, AST 97, ALT 121, ALP 286, T. Bili 9.2, D bili 7.7 - NS@60, Zofran prn for nausea - MRCP: irregular mass in the head of the pancreas - Abdominal US: fatty liver. moderate intra and extrahepatic biliary ductal dilation and gallbladder distention with layering sludge. no evidence of choledocholithiasis. 1.1cm cyst in the head of the pancreas and 1.7cm lesion in the head which may represent calcification. - CTAP: there is a large hypodense, mass inth epancreatic head 2x 4.2cm which is consistent with pancreatic carcinoma. Associated biliary obstruction with intrahepatic ductal dilation. there are multiple small hypodense lesions in the liver measuring less than 1 cm in diameter. Findings consistent with metastatic disease. - GI consulted Dr. Carias, plan for EUS ERCP stent tomorrow,and FNA - Heme/onc consulted Dr. Cagle, recs appreciated - Cardio consulted, Dr Troy, findings are not cardiac contraindications of possible endoscopy and ERCP - Suegery consulted, surgical intervention is not indicated HTN - Doxazosin Atrial Fibrillation - ASA - Cardizem - Sotalol CAD s/p 6 stents - ASA HLD - Lipitor COPD - Spiriva - Duonebs Ppx, diet - Protonix - SCD - NPO Pt seen, examined, assessment and plan discussed with Dr Fanta Pepper PGY1, Internal Medicine Resident <George Jewell - Last Filed: 09/13/18 16:26> Objective - Vital Signs/Intake and Output Vital Signs (last 24 hours): Temp Pulse Resp BP Pulse Ox 97.5 F L 71 20 116/82 96 09/13/18 08:09 09/13/18 08:09 09/13/18 08:09 09/13/18 10:32 09/13/18 08:09 Intake and Output: 09/13/18 09/13/18 06:59 18:59 Intake Total 0 Balance 0 - Labs Labs: 09/13/18 07:00 09/13/18 07:00 PT 15.9 SECONDS (9.4-12.5) H 09/12/18 07:00 INR 1.41 09/12/18 07:00 APTT 31.0 Seconds (26.9-38.3) 09/12/18 07:00 Attending/Attestation - Attestation I have personally seen and examined this patient.: Yes I have fully participated in the care of the patient.: Yes I have reviewed all pertinent clinical information, including history, physical exam and plan: Yes Notes (Text): 09/13/18 16:24 Attending note; patient seen and examined with resident. Patient's son and daughter by the bedside. Patient is alert and awake. Complaining of mild abdominal fullness. Denies any nausea, vomiting. Denies any chest pain, shortness of breath. Patient is a 78-year-old female with PMH HTN, atrial fibrillation, DM2, COPD, Lymphoma s/p chemotherapy in 2006, who presented to the ED for abnormal LFTs, jaundice, transaminitis, and hyperbilirubinemia, found to have a suspected pancreatic neoplasm on CT scan. 1. abdominal fullness/elevated LFTs; Abdominal US showed fatty liver, moderate intra and extrahepatic biliary ductal dilation and gallbladder distention with layering sludge. no evidence of choledocholithiasis. 1.1cm cyst in the head of the pancreas and 1.7cm lesion in the head which may represent calcification. CT abdomen and pelvis showed large hypodense, mass inth epancreatic head 2x 4.2cm which is consistent with pancreatic carcinoma. Associated biliary obstruction with intrahepatic ductal dilation. there are multiple small hypodense lesions in the liver measuring less than 1 cm in diameter. Findings consistent with metastatic disease. MRCP showed multiple pancreatic mass with intrahepatic and had extra hepatic ductal dilatation with liver metastases. Patient was evaluated by GI. plan for ERCP and stent placement tomorrow. Plan for pancreatic mass biopsy tomorrow. 2. History of lymphoma; patient follows up with Dr. Cagle. 3. History of atrial fibrillation; currently in normal sinus rhythm. Continue aspirin. Cardiology evaluation appreciated. patient is clinically stable. The diagnosis, treatment option discussed with patient and family in detail. Upon discharge the patient will follow up with PMD Dr. Langston. 09/13/18 16:25 09/13/18 16:25
[2018-09-11 16:24] LABS: INR 1.57; PROTHROMBIN TIME 17.4 SECONDS (9.4-12.5)
--- NOTE | 2018-09-11 18:53 | PN ---
DATE: 09/11/2018 SUBJECTIVE: The patient denies any chest pain or shortness of breath at the time of my evaluation. She does complain of abdominal discomfort, but no nausea or vomiting. PHYSICAL EXAMINATION: VITAL SIGNS: Blood pressure 150/52, heart rate 72, temperature 98.1, respirations 20. HEENT: Normocephalic. CHEST: Clear. HEART: S1, S2, regular. EXTREMITIES: No edema. LABORATORY DATA: Hematocrit 12.5, MCV 7.7, white count and platelet count are within normal limits. Today's SMA-7 are within normal limits except for chloride of 109 and creatinine 0.6. AST and ALT are as well as alkaline phosphatase are elevated. Yesterday's EKG revealed sinus rhythm at a rate of 72, consider septal infarct. Cardiac catheterization performed in 08/2017 revealed 90% stenosis of ostium of the diagonal branch at the takeoff the stent that was placed in [place] and the patient was kept on medical therapy. ASSESSMENT: 1. Pancreatic cancer. 2. Elevated liver enzymes. 3. History of coronary stenting in the past, history of three three-vessel coronary stenting in the past. 4. Hyperlipidemia. 5. History of paroxysmal atrial fibrillation. RECOMMENDATIONS: Continue current Betapace 80 mg once a day, Cardizem CD at 180 mg once a day, Cardura 2 mg once a day, aspirin 81 mg once a day, Lipitor 10 mg once a day. The patient will undergo EGD in a.m. Bao Cabrera MD
[2018-09-11] MEDS ORDERED: Phytonadione 10 mg/ml Inj (Adult) SC ONE (21:14)
--- NOTE | 2018-09-12 01:11 | CP.PCM.PN ---
Subjective - Date & Time of Evaluation Date of Evaluation: 09/12/18 Time of Evaluation: 01:10 - Subjective Subjective: # 20 angiocath was inserted in left hand. Has no acute symptoms now, not in distress, vital signs are stable. Objective - Vital Signs/Intake and Output Vital Signs (last 24 hours): Temp Pulse Resp BP Pulse Ox 97.9 F 73 18 115/50 L 96 09/11/18 21:58 09/11/18 21:58 09/11/18 21:58 09/11/18 21:58 09/11/18 21:58 - Medications Medications: Current Medications Albuterol/Ipratropium (Duoneb 3 Mg/0.5 Mg (3 Ml) Ud) 3 ml IH [id number] PRN PRN Reason: Shortness of Breath Aspirin (Ecotrin) 81 mg PO DAILY [facility] Last Admin: 09/11/18 11:48 Dose: 81 mg Atorvastatin Calcium (Lipitor) 10 mg PO DIN [facility] Last Admin: 09/11/18 17:50 Dose: 10 mg Diltiazem HCl (Cardizem Cd) 180 mg PO DAILY [facility] Last Admin: 09/11/18 11:56 Dose: 180 mg Doxazosin Mesylate (Cardura) 2 mg PO HS [facility] Last Admin: 09/11/18 21:50 Dose: 2 mg Sodium Chloride (Sodium Chloride 0.9%) 1,000 mls @ 60 mls/hr IV .[id number] [facility] Last Admin: 09/11/18 11:51 Dose: 60 mls/hr Ondansetron HCl (Zofran Inj) 4 mg IVP Q4H PRN PRN Reason: Nausea/Vomiting Pantoprazole Sodium (Protonix Ec Tab) 40 mg PO ACB [facility] Last Admin: 09/11/18 11:48 Dose: 40 mg Sotalol HCl (Betapace) 80 mg PO BID [facility] Last Admin: 09/11/18 17:50 Dose: 80 mg Tiotropium [place] (Spiriva) 18 mcg IH DAILY [facility] Last Admin: 09/11/18 11:48 Dose: 18 mcg - Labs Labs: 09/11/18 06:50 09/11/18 06:50 PT 17.4 SECONDS (9.4-12.5) H 09/11/18 16:14 INR 1.57 09/11/18 16:14 APTT 32.1 Seconds (26.9-38.3) 09/09/18 18:00
[2018-09-12 07:10] LABS: BASO # 0.01 K/mm3 (0.0-2.0); BASO % 0.1 % (0.0-3.0); EOS # 0.2 (0.0-0.7); EOS % 2.7 % (1.5-5.0); HEMOGLOBIN 12.2 g/dL (12.0-16.0); LYMPH # 1.2 (1.2-3.4); LYMPH % 15.2 % (22.0-35.0); MEAN CELL VOLUME 93.1 fl (80.0-105.0); MEAN CORPUSCULAR HEMOGLOBIN 31.1 pg (25.0-35.0); MEAN CORPUSCULAR HGB CONC 33.4 g/dl (31.0-37.0); MEAN PLATELET VOLUME 12.9 fl (7.0-11.0); MONO # 0.9 (0.1-0.6); MONO % 10.8 % (1.0-6.0); RBC 3.92 10^6/uL (3.5-6.1); RED CELL DISTRIBUTION WIDTH 16.3 % (11.5-14.5)
[2018-09-12 07:21] LABS: ALB/GLOB RATIO 0.9 (1.1-1.8); ALBUMIN 3.3 g/dL (3.0-4.8); ALT/SGPT 127 U/L (7-56); AST/SGOT 105 U/L (14-36); BLOOD UREA NITROGEN 8 mg/dL (7-21); CALCIUM 8.6 mg/dL (8.4-10.5); GFR NON-AFRICAN AMERICAN > 60
[2018-09-12 07:25] LABS: INR 1.41; PROTHROMBIN TIME 15.9 SECONDS (9.4-12.5)
[2018-09-12] MEDS ORDERED: Iohexol 240 (50 ml) ONE (14:48)
[2018-09-12] MEDS ORDERED: Indomethacin 50 MG Suppository PR ONE (14:49)
[2018-09-12] MEDS ORDERED: Propofol 10 mg/ml Inj (20 ML) ONE (17:29)
[2018-09-12] MEDS ORDERED: Midazolam 2 MG/2 ML VIAL ONE (17:29)
[2018-09-12] MEDS ORDERED: Rocuronium 10 mg/ml (5 ml) ONE (17:30)
--- NOTE | 2018-09-12 18:07 | PN ---
DATE: 09/12/2018 This is [facility]'s hospital visit on the medical floor. For Dr. Cagle. SUBJECTIVE: The patient is a 78-year-old female, seen sitting up in the chair with family at the bedside, appears jaundiced, but in no acute distress, denies any pain at this time, admitted via the emergency room for abnormal liver function testing with testing finding a change at the head of the pancreas, a 4 x 3 cm mass with further testing to be done today including an ERCP with stent placement as indicated. PAST MEDICAL HISTORY: Significant for lymphoma with treatment in 2006, six stents, coronary artery disease, atrial fibrillation history, diabetes mellitus, COPD, and now with jaundice of recent onset. It should be noted that the patient's tumor markers, CEA and CA 19-9 were within normal range. OBJECTIVE: VITAL SIGNS: Temperature 98.5, pulse 71, respirations 18, blood pressure 135/57, and pulse oximetry 94%. HEENT: The sclerae are mildly icteric. Tongue is dry as she is n.p.o. for procedure later this morning. NECK: Supple. HEART: Regular rate. LUNGS: Clear. ABDOMEN: Soft and nontender. EXTREMITIES: No edema. SKIN: Warm and dry with an icteric tinge. LABORATORY DATA: The patient's labs were done. White blood cell count of 8, hemoglobin 12.2, hematocrit 36.5, platelet count of 167,000 with a metabolic panel showing a potassium of 3.4, chloride of 109 with a non-fasting glucose of 112, T-bili of 9.4, AST of 105, ALT of 127, and alk phos is 275. As previously mentioned, her CEA value is 2.4 with a CA 19-9 of less than 1.4. Earlier in her hospital stay, the troponin value was less than 0.01 with her T-bili at 10.1 on admission. Her INR today is 1.41. The patient did have an MRCP done two days prior, which showed irregular pancreatic head mass with intra and extrahepatic biliary ductal dilatation and sharp cutoff of the distal common bile duct at the level of the pancreatic head. There was pancreatic ductal dilatation, multiple small hepatic masses suspicious for metastases, the small rounded cystic mass and the tail of the pancreas, nonspecific. The patient had EKG done two days prior and was read as normal size with left axis deviation, possible septal infarct, age indeterminate, CCR abnormal EKG. ASSESSMENT: Assessment for this patient is that of pancreatic mass, hyperbilirubinemia with jaundice, history of lymphoma, atherosclerotic cardiovascular disease with six stents, history of atrial fibrillation, hypertension, diabetes mellitus, chronic obstructive pulmonary disease, and hypokalemia. PLAN: The plan for this patient after conversation with Dr. Cagle is to continue present medical regimen with the potassium rider given. She may have ice chips as her procedure is not planned until early afternoon for stent placement as possible, biopsy as possible, This is a complex patient with a comprehensive medically necessary and appropriate visit carried out in excess of 40 minutes with the patient's questions answered to her satisfaction and at her request copies of the patient's imaging, testing were given to the patient with the patient's condition guarded. Modesto Price MD
--- NOTE | 2018-09-12 18:36 | PN ---
DATE: 09/12/2018 SUBJECTIVE: The patient denies any chest pain or shortness of breath. She is awaiting endoscopy. PHYSICAL EXAMINATION: VITAL SIGNS: Blood pressure 135/67, heart rate 71, temperature 98.5, and respirations 18. HEENT: Normocephalic. CHEST: Clear. HEART: S1 and S2 regular. EXTREMITIES: No edema. LABORATORY DATA: Hemoglobin and hematocrit 12.2 and 36.5. White count and platelet count are within normal limits. Today's potassium is 3.4, chloride 109, creatinine 0.6, and glucose 112. ASSESSMENT: 1. Pancreatic cancer. 2. Elevated liver enzymes. 3. History of coronary artery stenting in the past. 4. Hypokalemia. 5. History of paroxysmal atrial fibrillation. 6. Hyperlipidemia. RECOMMENDATIONS: Continue sotalol at 80 mg twice a day, Cardizem CD at 180 mg once a day, Cardura 2 mg once a day, aspirin 81 mg once a day, Lipitor 10 mg once a day, Protonix 40 mg p.o. once a day. The patient did receive 10 mEq of intravenous potassium chloride replacement today. Bao Cabrera MD
--- NOTE | 2018-09-12 18:43 | CP.PCM.PN ---
<Zaheer Pepper - Last Filed: 09/12/18 18:59> Subjective - Date & Time of Evaluation Date of Evaluation: 09/12/18 Time of Evaluation: 06:20 - Subjective Subjective: Pt seen and examined at bedside this morning. Per nursing, no complaints of pain or SOB. Objective - Vital Signs/Intake and Output Vital Signs (last 24 hours): Temp Pulse Resp BP Pulse Ox 98.4 F 83 20 174/75 H 98 09/12/18 17:20 09/12/18 17:20 09/12/18 17:20 09/12/18 17:20 09/12/18 17:26 - Medications Medications: Current Medications Albuterol/Ipratropium (Duoneb 3 Mg/0.5 Mg (3 Ml) Ud) 3 ml IH [id number] PRN PRN Reason: Shortness of Breath Aspirin (Ecotrin) 81 mg PO DAILY [facility] Last Admin: 09/11/18 11:48 Dose: 81 mg Atorvastatin Calcium (Lipitor) 10 mg PO DIN [facility] Last Admin: 09/11/18 17:50 Dose: 10 mg Diltiazem HCl (Cardizem Cd) 180 mg PO DAILY [facility] Last Admin: 09/11/18 11:56 Dose: 180 mg Doxazosin Mesylate (Cardura) 2 mg PO HS [facility] Last Admin: 09/11/18 21:50 Dose: 2 mg Sodium Chloride (Sodium Chloride 0.9%) 1,000 mls @ 60 mls/hr IV .[id number] [facility] Last Admin: 09/11/18 11:51 Dose: 60 mls/hr Ondansetron HCl (Zofran Inj) 4 mg IVP Q4H PRN PRN Reason: Nausea/Vomiting Pantoprazole Sodium (Protonix Ec Tab) 40 mg PO ACB [facility] Last Admin: 09/11/18 11:48 Dose: 40 mg Sotalol HCl (Betapace) 80 mg PO BID [facility] Last Admin: 09/12/18 17:09 Dose: 80 mg Tiotropium [place] (Spiriva) 18 mcg IH DAILY [facility] Last Admin: 09/11/18 11:48 Dose: 18 mcg - Labs Labs: 09/12/18 07:00 09/12/18 07:00 PT 15.9 SECONDS (9.4-12.5) H 09/12/18 07:00 INR 1.41 02/08/19 07:00 APTT 31.0 Seconds (26.9-38.3) 09/12/18 07:00 - Head Exam Head Exam: ATRAUMATIC, NORMOCEPHALIC - Eye Exam Eye Exam: EOMI - ENT Exam ENT Exam: Mucous Membranes Moist - Neck Exam Neck Exam: Full ROM - Respiratory Exam Respiratory Exam: Clear to Ausculation Bilateral. absent: Accessory Muscle Use - Cardiovascular Exam Cardiovascular Exam: REGULAR RHYTHM, RRR, +S1, +S2. absent: Diastolic murmur, Murmur - GI/Abdominal Exam GI & Abdominal Exam: Soft, Tenderness, Normal Bowel Sounds - Extremities Exam Extremities Exam: Full ROM, Pedal Edema. absent: Calf Tenderness - Neurological Exam Neurological Exam: Alert, Awake, Oriented x3 - Psychiatric Exam Psychiatric exam: Normal Affect, Normal Mood - Skin Additional comments: jaundiced Assessment and Plan - Assessment and Plan (Free Text) Assessment: Pt is a 78 yo female with PMH HTN, atrial fibrillation, DM2, COPD, Lymphoma s/p chemotherapy in 2006, who presented to the ED for abnormal LFTs, jaundice, transaminitis, and hyperbilirubinemia, found to have a suspected pancreatic neoplasm on CT scan. Plan: Suspected Pancreatic Neoplasm - Lipase 345, CA 19-9 <1.4, CEA 2.4, AST 105, ALT 127, ALP 275, T. Bili 9.4, D bili 7.7 - MRCP: irregular mass in the head of the pancreas - ERCP: follow up - CTAP: there is a large hypodense, mass inth epancreatic head 2x 4.2cm which is consistent with pancreatic carcinoma. Associated biliary obstruction with intrahepatic ductal dilation. there are multiple small hypodense lesions in the liver measuring less than 1 cm in diameter. Findings consistent with metastatic disease. - Abdominal US: fatty liver. moderate intra and extrahepatic biliary ductal dilation and gallbladder distention with layering sludge. no evidence of choledocholithiasis. 1.1cm cyst in the head of the pancreas and 1.7cm lesion in the head which may represent calcification. - Cardio consulted, Dr Troy, findings are not cardiac contraindications of possible endoscopy and ERCP - Suegery consulted, surgical intervention is not indicated - GI consulted Dr. Carias, appreciate recs - Heme/onc consulted Dr. Cagle, recs appreciated CAD s/p 6 stents - ASA HLD - Lipitor HTN - Doxazosin Atrial Fibrillation - ASA - Cardizem - Sotalol COPD - Spiriva - Duonebs Ppx, diet - NPO - Protonix - SCD Pt seen, examined, assessment and plan discussed with Dr Fanta Pepper PGY1, Internal Medicine Resident <George Jewell - Last Filed: 09/13/18 18:42> Objective - Vital Signs/Intake and Output Vital Signs (last 24 hours): Temp Pulse Resp BP Pulse Ox 97.5 F L 71 20 116/82 96 09/13/18 08:09 09/13/18 08:09 09/13/18 08:09 09/13/18 10:32 09/13/18 08:09 Intake and Output: 09/13/18 09/13/18 06:59 18:59 Intake Total 0 Balance 0 - Labs Labs: 09/13/18 07:00 09/13/18 07:00 PT 15.9 SECONDS (9.4-12.5) H 09/12/18 07:00 INR 1.41 09/12/18 07:00 APTT 31.0 Seconds (26.9-38.3) 09/12/18 07:00 Attending/Attestation - Attestation I have personally seen and examined this patient.: Yes I have fully participated in the care of the patient.: Yes I have reviewed all pertinent clinical information, including history, physical exam and plan: Yes Notes (Text): 09/13/18 16:27 Attending note; patient seen and examined with resident. Patient's son and daughter by the bedside. Patient is alert and awake. Complaining of mild abdominal fullness. Denies any nausea, vomiting. Denies any chest pain, shortness of breath. patient is NPO for pancreatic mass biopsy and Biliary stent placement. Patient is a 78-year-old female with PMH HTN, atrial fibrillation, DM2, COPD, Lymphoma s/p chemotherapy in 2006, who presented to the ED for abnormal LFTs, jaundice, transaminitis, and hyperbilirubinemia, found to have a suspected pancreatic neoplasm on CT scan. 1. abdominal fullness/elevated LFTs; still with bilirubin of 9.4. Abdominal US showed fatty liver, moderate intra and extrahepatic biliary ductal dilation and gallbladder distention with layering sludge. no evidence of choledocholithiasis. 1.1cm cyst in the head of the pancreas and 1.7cm lesion in the head which may represent calcification. CT abdomen and pelvis showed large hypodense, mass inth epancreatic head 2x 4.2cm which is consistent with pancreatic carcinoma. Associated biliary obstruction with intrahepatic ductal dilation. there are multiple small hypodense lesions in the liver measuring less than 1 cm in diameter. Findings consistent with metastatic disease. MRCP showed multiple pancreatic mass with intrahepatic and had extra hepatic ductal dilatation with liver metastases. Patient was evaluated by GI. plan for ERCP and stent placement today. Plan for pancreatic mass biopsy today. 2. History of lymphoma; patient follows up with Dr. Cagle. 3. History of atrial fibrillation; currently in normal sinus rhythm. Continue aspirin. Cardiology evaluation appreciated. patient is clinically stable. The diagnosis, treatment option discussed with patient and family in detail. Upon discharge the patient will follow up with PMD Dr. Langston. 09/13/18 16:27 09/13/18 18:41
[2018-09-12] MEDS ORDERED: Glycopyrrolate 0.2 mg/ml (2ml vial) ONE (19:53)
[2018-09-12] MEDS ORDERED: Neostigmine Methylsulfate 3mg/3ml Syringe IV ONE (19:54)
[2018-09-12] MEDS ORDERED: Sodium Chloride 0.9% 1,000 ML IV SCH (20:15)
[2018-09-12] MEDS: diltiaZEM 180 mg/24 Hours CD Cap PO SCH (20:23)
[2018-09-12] MEDS: Tiotropium 18 mcg Cap For Inhalation IH SCH (20:24)
[2018-09-12] MEDS: Pantoprazole 40 mg EC Tab PO SCH (20:25)
[2018-09-12 23:11] VITALS: RESP 20
[2018-09-13 07:26] LABS: BASO # 0.01 K/mm3 (0.0-2.0); BASO % 0.1 % (0.0-3.0); EOS # 0.2 (0.0-0.7); EOS % 2.4 % (1.5-5.0); HEMOGLOBIN 11.9 g/dL (12.0-16.0); LYMPH # 1.4 (1.2-3.4); LYMPH % 18.2 % (22.0-35.0); MEAN CELL VOLUME 94.8 fl (80.0-105.0); MEAN CORPUSCULAR HEMOGLOBIN 30.7 pg (25.0-35.0); MEAN CORPUSCULAR HGB CONC 32.4 g/dl (31.0-37.0); MEAN PLATELET VOLUME 13.6 fl (7.0-11.0); MONO # 0.7 (0.1-0.6); MONO % 9.5 % (1.0-6.0); RBC 3.87 10^6/uL (3.5-6.1); RED CELL DISTRIBUTION WIDTH 16.6 % (11.5-14.5); WHITE BLOOD COUNT 7.5 10^3/uL (4.5-11.0)
[2018-09-13 07:53] LABS: ALB/GLOB RATIO 0.9 (1.1-1.8); ALBUMIN 3.1 g/dL (3.0-4.8); ALT/SGPT 110 U/L (7-56); AST/SGOT 88 U/L (14-36); BLOOD UREA NITROGEN 8 mg/dL (7-21); CALCIUM 8.7 mg/dL (8.4-10.5); GFR NON-AFRICAN AMERICAN > 60
[2018-09-13 08:09] VITALS: PULSE 71; TEMP 97.5; O2SAT 96
[2018-09-13] MEDS ORDERED: Potassium Chloride 20 mEq ER Tab PO ONE (10:25)
[2018-09-13] MEDS: diltiaZEM 180 mg/24 Hours CD Cap PO SCH (10:32)
[2018-09-13] MEDS: Tiotropium 18 mcg Cap For Inhalation IH SCH (10:32)
[2018-09-13] MEDS: Pantoprazole 40 mg EC Tab PO SCH (10:34)
[2018-09-13 10:39] VITALS: BP 116/82
[2018-09-13] MEDS ORDERED: Potassium Chloride 20 mEq ER Tab PO STA (10:45)
--- NOTE | 2018-09-13 14:20 | CP.PCM.PN ---
Subjective - Date & Time of Evaluation Date of Evaluation: 09/13/18 Time of Evaluation: 14:15 - Subjective Subjective: No complaints. Tolerating diet. Going home today. Objective - Vital Signs/Intake and Output Vital Signs (last 24 hours): Temp Pulse Resp BP Pulse Ox 97.5 F L 71 20 116/82 96 09/13/18 08:09 09/13/18 08:09 09/13/18 08:09 09/13/18 10:32 09/13/18 08:09 Intake and Output: 09/13/18 09/13/18 06:59 18:59 Intake Total 0 Balance 0 - Medications Medications: Current Medications Albuterol/Ipratropium (Duoneb 3 Mg/0.5 Mg (3 Ml) Ud) 3 ml IH [id number] PRN PRN Reason: Shortness of Breath Aspirin (Ecotrin) 81 mg PO DAILY [facility] Last Admin: 09/13/18 10:33 Dose: 81 mg Atorvastatin Calcium (Lipitor) 10 mg PO DIN [facility] Last Admin: 09/12/18 20:26 Dose: Not Given Diltiazem HCl (Cardizem Cd) 180 mg PO DAILY [facility] Last Admin: 09/13/18 10:32 Dose: 180 mg Doxazosin Mesylate (Cardura) 2 mg PO HS [facility] Last Admin: 09/13/18 06:33 Dose: Not Given Sodium Chloride (Sodium Chloride 0.9%) 1,000 mls @ 60 mls/hr IV .[id number] [facility] Last Admin: 09/11/18 11:51 Dose: 60 mls/hr Ondansetron HCl (Zofran Inj) 4 mg IVP Q4H PRN PRN Reason: Nausea/Vomiting Pantoprazole Sodium (Protonix Ec Tab) 40 mg PO ACB [facility] Last Admin: 09/13/18 10:34 Dose: 40 mg Sotalol HCl (Betapace) 80 mg PO BID [facility] Last Admin: 09/13/18 10:32 Dose: 80 mg Tiotropium [place] (Spiriva) 18 mcg IH DAILY [facility] Last Admin: 09/13/18 10:32 Dose: 18 mcg - Labs Labs: 09/13/18 07:00 09/13/18 07:00 PT 15.9 SECONDS (9.4-12.5) H 09/12/18 07:00 INR 1.41 09/12/18 07:00 APTT 31.0 Seconds (26.9-38.3) 09/12/18 07:00 - Constitutional Appears: Non-toxic, No Acute Distress - Eye Exam Eye Exam: EOMI, Normal appearance, Scleral icterus - Respiratory Exam Respiratory Exam: Clear to Ausculation Bilateral, NORMAL BREATHING PATTERN - Cardiovascular Exam Cardiovascular Exam: REGULAR RHYTHM, +S1, +S2 - GI/Abdominal Exam GI & Abdominal Exam: Soft, Normal Bowel Sounds. absent: Tenderness - Extremities Exam Extremities Exam: Normal Inspection. absent: Pedal Edema - Neurological Exam Neurological Exam: Alert, Awake, Oriented x3 - Psychiatric Exam Psychiatric exam: Normal Affect, Normal Mood - Skin Skin Exam: absent: Normal Color, Pallor Assessment and Plan - Assessment and Plan (Free Text) Assessment: 78 year old female with PMH of NHL s/p chemotherapy 2006, CAD s/p 6 stents (last 08/2017), Afib on Aspirin, HTN, Diabetes, and COPD presenting due to abnormal liver function testing. Active treatment of painless obstructive jaundice with pancreatic and hepatic lesions on cross-sectional imaging. No prior EGD or colonoscopy. Endorses negative stool test last year. Plan: -EUS with FNB of ~3.5cm pancreatic mass. Worrisome for lymphoma. - F/u FNB biopsy results. -ERCP attempted but unable to place stent.\ -She will have outpatient PTC with stent placed Saturday or Saturday with Dr. Erik Parham. -Need to follow up with heme/onc, Dr. Cagle. -F/u with GI as outpatient, Dr. Carias. Case discussed with Dr. Carias.
--- NOTE | 2018-09-13 16:12 | CP.PCM.DIS ---
<Mumtaz Canchola - Last Filed: 09/15/18 06:58> Provider - Provider Date of Admission: 09/09/18 20:36 Attending physician: George Jewell MD Consults: 09/09/18 21:52 Hematology Oncology Consult Routine Comment: Consulting Provider: Tai Cagle Consulting Physician: Tai Cagle Reason for Consult: Suspected pancreatic neoplasm, hx lymphoma s/p chemo in 200609/09/18 21:53 Gastroenterology Consult Routine Comment: Consulting Provider: Mayo Carias V Consulting Physician: Mayo Carias V Reason for Consult: Suspected pancreatic neoplasm, elevated LFTs and total bili 09/10/18 10:06 Physician Consult Routine Comment: Consulting Provider: Erik Parham Consulting Physician: Erik Parham Reason for Consult: in event a percutaneous stent/drain will need to be placed in future 09/10/18 10:08 General Surgery Consult Routine Comment: Consulting Provider: Leoncio Shelton Consulting Physician: Leoncio Shelton Reason for Consult: pancreatic head mass - is it operable? 09/10/18 12:34 Cardiology Consult Routine Comment: Consulting Provider: Erik rToy Consulting Physician: Erik Troy Reason for Consult: Afib, possible Endoscopy stratification Time Spent in preparation of Discharge (in minutes): 35 Diagnosis - Discharge Diagnosis (1) Pancreatitis due to biliary obstruction Status: Acute Priority: High Hospital Course - Lab Results Lab Results: Most Recent Lab Values WBC 7.5 10^3/uL (4.5-11.0) 09/13/18 07:00 RBC 3.87 10^6/uL (3.5-6.1) 09/13/18 07:00 Hgb 11.9 g/dL (12.0-16.0) L 09/13/18 07:00 Hct 36.7 % (36.0-48.0) 09/13/18 07:00 MCV 94.8 fl (80.0-105.0) 09/13/18 07:00 MCH 30.7 pg (25.0-35.0) 09/13/18 07:00 MCHC 32.4 g/dl (31.0-37.0) 09/13/18 07:00 RDW 16.6 % (11.5-14.5) H 09/13/18 07:00 Plt Count 152 10^3/uL (120.0-450.0) 09/13/18 07:00 MPV 13.6 fl (7.0-11.0) H 09/13/18 07:00 Neut % (Auto) 69.8 % (50.0-68.0) H 09/13/18 07:00 Lymph % (Auto) 18.2 % (22.0-35.0) L 09/13/18 07:00 [place] % (Auto) 9.5 % (1.0-6.0) H 09/13/18 07:00 Eos % (Auto) 2.4 % (1.5-5.0) 09/13/18 07:00 Baso % (Auto) 0.1 % (0.0-3.0) 09/13/18 07:00 Lymph # (Auto) 1.4 (1.2-3.4) 09/13/18 07:00 [place] # (Auto) 0.7 (0.1-0.6) H 09/13/18 07:00 Eos # (Auto) 0.2 (0.0-0.7) 09/13/18 07:00 Baso # (Auto) 0.01 K/mm3 (0.0-2.0) 09/13/18 07:00 Absolute Neuts (auto) 5.21 (1.4-6.5) 09/13/18 07:00 PT 15.9 SECONDS (9.4-12.5) H 09/12/18 07:00 INR 1.41 09/12/18 07:00 APTT 31.0 Seconds (26.9-38.3) 09/12/18 07:00 Sodium 139 mmol/L (132-148) 09/13/18 07:00 Potassium 3.5 mmol/L (3.6-5.0) L 09/13/18 07:00 Chloride 107 mmol/L (98-107) 09/13/18 07:00 Carbon Dioxide 27 mmol/L (21-33) 09/13/18 07:00 Anion Gap 8 (10-20) L 09/13/18 07:00 BUN 8 mg/dL (7-21) 09/13/18 07:00 Creatinine 0.7 mg/dl (0.7-1.2) 09/13/18 07:00 Est GFR ( Amer) > 60 09/13/18 07:00 Est GFR (Non-Af Amer) > 60 09/13/18 07:00 POC Glucose (mg/dL) 142 mg/dL (65-110) H 09/13/18 11:22 Random Glucose 116 mg/dL (70-110) H 09/13/18 07:00 Calcium 8.7 mg/dL (8.4-10.5) 09/13/18 07:00 Phosphorus 3.3 mg/dL (2.5-4.5) 09/10/18 06:34 Magnesium 1.6 mg/dL (1.7-2.2) L 09/10/18 06:34 Total Bilirubin 10.0 mg/dL (0.2-1.3) H 09/13/18 07:00 Direct Bilirubin 7.7 mg/dL (0.0-0.4) H 09/09/18 18:00 GGT 482 U/L (8-78) H 09/10/18 06:34 AST 88 U/L (14-36) H 09/13/18 07:00 ALT 110 U/L (7-56) H 09/13/18 07:00 Alkaline Phosphatase 238 U/L (38-126) H 09/13/18 07:00 Troponin I < 0.01 ng/mL D 09/09/18 18:00 Total Protein 6.6 g/dL (5.8-8.3) 09/13/18 07:00 Albumin 3.1 g/dL (3.0-4.8) 09/13/18 07:00 Globulin 3.5 gm/dL 09/13/18 07:00 Albumin/Globulin Ratio 0.9 (1.1-1.8) L 09/13/18 07:00 Lipase 345 U/L (23-300) H 09/09/18 18:00 Carcinoembryonic Ag 2.4 ng/mL (0.0-3.0) 09/10/18 06:34 CA 19-9 Antigen < 1.4 U/mL (0-37) 09/10/18 06:34 - Hospital Course Hospital Course: 78 F with past medical history of HTN, DM2, COPD, A-Fib, and Lymphoma s/p chemotherapy 2006 presented to the hospital from her PMD, Dr. Langston', office for jaundice. Patient's labs in the outpatient setting revealed a T Bili of 8.2. Upon presentation, patient had a CT A/P which showed obstruction at the pancreatic head of the CBD 2/2 a mass. Patient was taken to EUS by Dr. Carias and his fellows, which showed that the mass may be worrisome for lymphoma. ERCP was attempted but not successful. They recommended that an outpatient PTC with stent be placed on 09/15, and that patient follow up with heme/onc, Dr. Cagle. On day of discharge, patient was medically optimized and deemed stable. Discharge Exam - Head Exam Head Exam: ATRAUMATIC, NORMOCEPHALIC - Eye Exam Eye Exam: EOMI, Normal appearance, PERRL Pupil Exam: NORMAL ACCOMODATION, PERRL - Respiratory Exam Respiratory Exam: Clear to PA & Lateral, NORMAL BREATHING PATTERN, UNREMARKABLE - Cardiovascular Exam Cardiovascular Exam: REGULAR RHYTHM - GI/Abdominal Exam GI & Abdominal Exam: Normal Bowel Sounds, Unremarkable - Neurological Exam Neurological exam: Alert, CN II-XII Intact, Normal Gait, Oriented x3, Reflexes Normal - Psychiatric Exam Psychiatric exam: Normal Affect, Normal Mood - Skin Skin Exam: Dry, Intact, Normal Color, Warm - Additional Findings Additional findings: Patient is still jaundiced, less so than before Discharge Plan - Follow Up Plan Condition: STABLE Disposition: HOME/ ROUTINE Instructions: Biopsy, Low Cholesterol, Saturated Fat, and Trans Fat Diet , Jaundice, Adult (DC), Coronary Heart Disease in Women, Endoscopic Retrograde Cholangiopancreatography (DC), Lowering Your Risk of Heart Disease, Chest Pain (DC), Chest Pain (GEN) Additional Instructions: Please follow up with your primary care doctor, Dr. Langston, within 3-5 days of discharge. When you schedule your appointment, please ask to see Dr. Pandya Please make sure to ask your primary care doctor to follow up with your biopsy results. You may also contact "Medical Records" at [facility] to retrieve this information. Please follow up with your Turnstile Attendant (stomach doctor), Dr. Carias, within 3-5 days of discharge Please scheduled an appointment with Interventional Radiologist, Dr. Erik Parham on 09/15/18 Please return to the nearest emergency room if your symptoms return or you experience new symptoms Referrals: Reilly Langston MD [Family Provider] - Mayo Carias MD [Medical Doctor] - Erik Parham MD [Staff Provider] - Mumtaz Canchola DO [Resident] - <George Jewell - Last Filed: 09/22/18 08:00> Provider - Provider Date of Admission: 09/09/18 20:36 Attending physician: George Jewell MD Consults: 09/09/18 21:52 Hematology Oncology Consult Routine Comment: Consulting Provider: Tai Cagle Consulting Physician: Tai Cagle Reason for Consult: Suspected pancreatic neoplasm, hx lymphoma s/p chemo in 200609/09/18 21:53 Gastroenterology Consult Routine Comment: Consulting Provider: Mayo Carias V Consulting Physician: Mayo Carias V Reason for Consult: Suspected pancreatic neoplasm, elevated LFTs and total bili 09/10/18 10:06 Physician Consult Routine Comment: Consulting Provider: Erik Parham Consulting Physician: Erik Parham Reason for Consult: in event a percutaneous stent/drain will need to be placed in future 09/10/18 10:08 General Surgery Consult Routine Comment: Consulting Provider: Leoncio Shelton Consulting Physician: Leoncio Shelton Reason for Consult: pancreatic head mass - is it operable? 09/10/18 12:34 Cardiology Consult Routine Comment: Consulting Provider: Erik Troy Consulting Physician: Erik Troy Reason for Consult: Afib, possible Endoscopy stratification Hospital Course - Lab Results Lab Results: Most Recent Lab Values WBC 7.5 10^3/uL (4.5-11.0) 09/13/18 07:00 RBC 3.87 10^6/uL (3.5-6.1) 09/13/18 07:00 Hgb 11.9 g/dL (12.0-16.0) L 09/13/18 07:00 Hct 36.7 % (36.0-48.0) 09/13/18 07:00 MCV 94.8 fl (80.0-105.0) 09/13/18 07:00 MCH 30.7 pg (25.0-35.0) 09/13/18 07:00 MCHC 32.4 g/dl (31.0-37.0) 09/13/18 07:00 RDW 16.6 % (11.5-14.5) H 09/13/18 07:00 Plt Count 152 10^3/uL (120.0-450.0) 09/13/18 07:00 MPV 13.6 fl (7.0-11.0) H 09/13/18 07:00 Neut % (Auto) 69.8 % (50.0-68.0) H 09/13/18 07:00 Lymph % (Auto) 18.2 % (22.0-35.0) L 09/13/18 07:00 [place] % (Auto) 9.5 % (1.0-6.0) H 09/13/18 07:00 Eos % (Auto) 2.4 % (1.5-5.0) 09/13/18 07:00 Baso % (Auto) 0.1 % (0.0-3.0) 09/13/18 07:00 Lymph # (Auto) 1.4 (1.2-3.4) 09/13/18 07:00 [place] # (Auto) 0.7 (0.1-0.6) H 09/13/18 07:00 Eos # (Auto) 0.2 (0.0-0.7) 09/13/18 07:00 Baso # (Auto) 0.01 K/mm3 (0.0-2.0) 09/13/18 07:00 Absolute Neuts (auto) 5.21 (1.4-6.5) 09/13/18 07:00 PT 15.9 SECONDS (9.4-12.5) H 09/12/18 07:00 INR 1.41 09/12/18 07:00 APTT 31.0 Seconds (26.9-38.3) 09/12/18 07:00 Sodium 139 mmol/L (132-148) 09/13/18 07:00 Potassium 3.5 mmol/L (3.6-5.0) L 09/13/18 07:00 Chloride 107 mmol/L (98-107) 09/13/18 07:00 Carbon Dioxide 27 mmol/L (21-33) 09/13/18 07:00 Anion Gap 8 (10-20) L 09/13/18 07:00 BUN 8 mg/dL (7-21) 09/13/18 07:00 Creatinine 0.7 mg/dl (0.7-1.2) 09/13/18 07:00 Est GFR ( Amer) > 60 09/13/18 07:00 Est GFR (Non-Af Amer) > 60 09/13/18 07:00 POC Glucose (mg/dL) 142 mg/dL (65-110) H 09/13/18 11:22 Random Glucose 116 mg/dL (70-110) H 09/13/18 07:00 Calcium 8.7 mg/dL (8.4-10.5) 09/13/18 07:00 Phosphorus 3.3 mg/dL (2.5-4.5) 09/10/18 06:34 Magnesium 1.6 mg/dL (1.7-2.2) L 09/10/18 06:34 Total Bilirubin 10.0 mg/dL (0.2-1.3) H 09/13/18 07:00 Direct Bilirubin 7.7 mg/dL (0.0-0.4) H 09/09/18 18:00 GGT 482 U/L (8-78) H 09/10/18 06:34 AST 88 U/L (14-36) H 09/13/18 07:00 ALT 110 U/L (7-56) H 09/13/18 07:00 Alkaline Phosphatase 238 U/L (38-126) H 09/13/18 07:00 Troponin I < 0.01 ng/mL D 09/09/18 18:00 Total Protein 6.6 g/dL (5.8-8.3) 09/13/18 07:00 Albumin 3.1 g/dL (3.0-4.8) 09/13/18 07:00 Globulin 3.5 gm/dL 09/13/18 07:00 Albumin/Globulin Ratio 0.9 (1.1-1.8) L 09/13/18 07:00 Lipase 345 U/L (23-300) H 09/09/18 18:00 Carcinoembryonic Ag 2.4 ng/mL (0.0-3.0) 09/10/18 06:34 CA 19-9 Antigen < 1.4 U/mL (0-37) 09/10/18 06:34 Attending/Attestation - Attestation I have personally seen and examined this patient.: Yes I have fully participated in the care of the patient.: Yes I have reviewed all pertinent clinical information, including history, physical exam and plan: Yes Notes (Text): 09/22/18 07:57 Attending note; patient seen and examined with resident. Patient's son and daughter by the bedside. Patient is alert and awake. Complaining of mild abdominal fullness. denies any pain. tolerating diet. Denies any nausea, vomiting. Denies any chest pain, shortness of breath. s/p pancreatic biopsy. failed biliary stent placement. Patient is a 78-year-old female with PMH HTN, atrial fibrillation, DM2, COPD, Lymphoma s/p chemotherapy in 2006, who presented to the ED for abnormal LFTs, jaundice, transaminitis, and hyperbilirubinemia, found to have a suspected pancreatic neoplasm on CT scan. 1. abdominal fullness/elevated LFTs; still with bilirubin of 10. Abdominal US showed fatty liver, moderate intra and extrahepatic biliary ductal dilation and gallbladder distention with layering sludge. no evidence of choledocholithiasis. 1.1cm cyst in the head of the pancreas and 1.7cm lesion in the head which may represent calcification. CT abdomen and pelvis showed large hypodense, mass inth epancreatic head 2x 4.2cm which is consistent with pancreatic carcinoma. Associated biliary obstruction with intrahepatic ductal dilation. there are multiple small hypodense lesions in the liver measuring less than 1 cm in diameter. Findings consistent with metastatic disease. MRCP showed multiple pancreatic mass with intrahepatic and had extra hepatic ductal dilatation with liver metastases. Patient was evaluated by GI. s/p EUS and pancreatic biopsy. Failed biliary stent placement. Patient will follow up with DR. Parham for outpatient stent placement. Message left with DR. Parham's office. 2. History of lymphoma; patient follows up with Dr. Cagle. 3. History of atrial fibrillation; currently in normal sinus rhythm. Continue aspirin. Cardiology evaluation appreciated. patient is clinically stable. discharge home today. follow up with biopsy results. The diagnosis, treatment option discussed with patient and family in detail. Upon discharge the patient will follow up with PMD Dr. Langston. 09/22/18 07:58 09/22/18 08:00
--- NOTE | 2018-09-13 22:13 | PN ---
DATE: 09/13/2018 SUBJECTIVE: The patient was evaluated earlier today prior to discharge. She underwent EGD with endoscopic ultrasound and fine needle aspiration; however, attempted ERCP was unsuccessful. The patient denies any chest pain or shortness of breath. PHYSICAL EXAMINATION: VITAL SIGNS: Blood pressure 116/55, heart rate 71, temperature 97.5, and respirations 20. HEENT: Normocephalic. CHEST: Clear. HEART: S1 and S2 regular. EXTREMITIES: No edema. LABORATORY DATA: Today's hemoglobin and hematocrit 11.9 and 36.7. White count and platelet count are within normal limits. Today's potassium is 3.5, total bilirubin is 10, and alkaline phosphatase is 238. EKG performed today revealed normal sinus rhythm at rate 68, old anterior GA and old anterolateral GA. ASSESSMENT: 1. Coronary artery disease, status post coronary stenting in the past. 2. Jaundice and cholestasis. 3. History of paroxysmal atrial fibrillation. 4. Pancreatic cancer. RECOMMENDATIONS: The patient can be discharged on Betapace, Cardizem CD, Cardura, and aspirin. The patient did receive K-dur 20 mEq prior to her discharge, and the patient will follow up with Dr. Erik Parham, interventional radiologist, on Saturday morning. Bao Cabrera MD
--- NOTE | 2018-09-13 23:26 | CARD ---
APPROVED REPORT Date of service: 09/13/2018 EKG Measurement Heart [id number] ME 152P-3 [id number] <Conclusion> Normal sinus rhythm Inferior infarct, age undetermined Anterolateral infarct, age undetermined Abnormal ECG
--- NOTE | 2018-09-14 02:42 | PN ---
DATE: 09/13/2018 LOCATION: The patient is in room 566, bed 3. SUBJECTIVE: This is a 78-year-old female and is being discharged today. She has no complaints with tolerating diet. The patient was admitted earlier on with symptoms of dyspepsia, burping, belching, and was found to have on examination by her PMD that she was having painless obstructive jaundice for the last few weeks. The patient was advised to go to the emergency room and get admitted and in the workup in the ER the patient was noted to have an obstructive lesion in the head of the pancreas causing obstructive jaundice and the ultrasound and the CAT scan of the liver and MRCP the patient especially noted to have hepatic lesions as well on the cross-sectional imaging along with pancreatic head mass. CA and CA-19-9 had been within normal limits. The patient underwent an endoscopy with an attempted endoscopic placement of stent into the biliary duct was unsuccessful. The patient of course had fine needle aspiration of the pancreatic mass which was seen in the EUS and results of which will be pending. 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 The patient made to complete remission. She also has history of COPD, history of coronary artery disease status post six stents, last stent done in 08/2017, history of AFib on aspirin, hypertension, diabetes, history of low back pain related to discogenic disease and spinal stenosis, and now presents with the aforementioned complaints. The patient is tolerating diet and she is being discharge for further followup as an outpatient. PHYSICAL EXAMINATION: GENERAL: The patient is awake, alert, and oriented, in no acute distress. HEENT: The patient has scleral icterus. OROPHARYNX: No oropharyngeal lesion. NECK: Supple. There is no adenopathy. LUNGS: Clear to percussion and auscultation. CARDIOVASCULAR SYSTEM: Reveals S1, S2 to be normal. The patient has regular heart rate. GASTROINTESTINAL: Abdomen is protuberant, nontender. No masses are felt. EXTREMITIES: Reveal no significant edema. NEUROLOGIC: Reveals higher functions to be normal. No focal deficits are noted. Skin turgor is normal. The patient is . GENITOURINARY: Deferred. RECTAL: Deferred. ASSESSMENT, NOTES, AND PLAN: The patient has been instructed to follow up with us as an outpatient. The patient will need probably PTC to have an internal and external drain and then at the same time, the patient may need liver biopsy as well to get the true histologic picture of what is happening as far as pathology is concerned. With the markers of CA and CA 19-9 being normal, one is concerned whether the pathology could be lymphoma as well since she has a prior history of lymphoma, status post chemotherapy. We will await to process all of this as an outpatient. The patient is going to be having to see Dr. Carias, Gastroenterology as well, Dr. Erik Parham for Interventional Radiology. She is going to follow up with us and hopefully we should have at least fine needle aspiration by Saturday, upon which we can make further decisions. The patient has been given routine post exam instructions. We will try to attempt to follow the patient as an outpatient and speak to the consultants involved in her care. Note: This is a complex patient with multiple comorbid medical issues. Time spent with the patient is greater than 45 minutes. Tai Cagle MD
--- NOTE | 2018-09-15 13:00 | RAD ---
Date of service: 09/12/2018 PROCEDURE: Fluoroscopy up to 1 hr HISTORY: ? CBD OBST / ATTEMPTED ERCP COMPARISON: TECHNIQUE: 186.8 sec of fluoro time. 63.53 mGy cumulative dose. Three images were submitted FINDINGS: ERCP was not successful. There is no visualization of the common duct IMPRESSION: As above
== END 2018-09-13 15:05 | disposition home or self-care (01) | DRG 435 ==
LOC: ED 16:57 → ERH 20:36 → 5RNO 09-10 01:51
PROVIDERS: ADMIT Internal Medicine; ATTEND Internal Medicine
PROC: 0DJ08ZZ Inspection of Upper Intestinal Tract, Via Natural or Artificial Opening Endoscopic (ICD-10-PCS; principal; 2018-09-12 15:30)
PROC: 0FBG8ZX Excision of Pancreas, Via Natural or Artificial Opening Endoscopic, Diagnostic (ICD-10-PCS; 2018-09-12 15:30)
DX: C25.9 Malignant neoplasm of pancreas, unspecified (principal); K83.1 Obstruction of bile duct; C78.7 Secondary malignant neoplasm of liver and intrahepatic bile duct; J44.9 Chronic obstructive pulmonary disease, unspecified; I48.0 Paroxysmal atrial fibrillation; I10 Essential (primary) hypertension; E11.9 Type 2 diabetes mellitus without complications; M51.37 Other intervertebral disc degeneration, lumbosacral region; I25.10 Atherosclerotic heart disease of native coronary artery without angina pectoris; I48.2 Chronic atrial fibrillation; E78.00 Pure hypercholesterolemia, unspecified; E87.6 Hypokalemia; K29.50 Unspecified chronic gastritis without bleeding; K29.80 Duodenitis without bleeding; K44.9 Diaphragmatic hernia without obstruction or gangrene; K76.0 Fatty (change of) liver, not elsewhere classified; R94.5 Abnormal results of liver function studies; E78.5 Hyperlipidemia, unspecified; Z85.72 Personal history of non-Hodgkin lymphomas; Z92.21 Personal history of antineoplastic chemotherapy; Z87.891 Personal history of nicotine dependence; Z95.5 Presence of coronary angioplasty implant and graft

== ENCOUNTER 2018-09-16 13:14 | Day surgery (SDC) | payer MEDICARE, BC ==
[2018-09-16 09:58] VITALS: BMI 34.4
[2018-09-16] MEDS ORDERED: Iodixanol 320 MG/ML 100 ML BOTTLE IV ONE ×3 (14:40→17:57)
[2018-09-16] MEDS ORDERED: Lidocaine 2% Inj (20ml) ONE (14:40)
[2018-09-16] MEDS ORDERED: Midazolam 2 MG/2 ML VIAL ONE ×2 (16:59→17:30)
[2018-09-16] MEDS ORDERED: Oxycodone/Acetaminophen 5/325 mg Tab PO PRN (19:09)
[2018-09-16] MEDS ORDERED: HYDROmorphone 2 mg/ml ISec IVP PRN (19:11)
[2018-09-16] MEDS ORDERED: Oxycodone/Acetaminophen 5/325 mg Tab PO ONE (19:14)
[2018-09-16] MEDS ORDERED: Sodium Chloride 0.45% 1,000 ML IV SCH (19:15)
[2018-09-16] MEDS ORDERED: Oxycodone/Acetaminophen 5/325 mg Tab ONE (19:16)
[2018-09-16] MEDS ORDERED: HYDROmorphone 2 mg/ml ISec ONE (19:47)
[2018-09-16 20:06] VITALS: RESP 20
--- NOTE | 2018-09-16 20:46 | VASCULAR ---
PROCEDURE: 1. Internal/external biliary drain placement. 2. Biliary dilatation without stent placement HISTORY: Pancreatic mass. Biliary obstruction. Unable to perform ERCP needs biliary drainage. PHYSICIAN(S): Erik Parham MD. TECHNIQUE: The relative risks and indications for the procedure were explained to the patient and her family and informed consent obtained. The patient was placed supine on the arteriography table in the right abdomen prepped and draped usual sterile fashion. Conscious sedation monitoring were provided throughout the procedure by a nurse. Three passes from a right intercostal approach in the mid axillary line was performed. Dilated bile ducts were entered and opacified. A 0.018 guidewires advanced level obstruction. Exchange is made for a 5 [place] catheter and angled Glidewire. With some difficulty, the malignant obstruction the CBD was crossed. A support wire was placed in the duodenum. Unfortunately, the catheter would not cross the tight obstruction in the CBD. Biliary dilatation of the malignant obstruction was performed with a 7 mm balloon. This facilitate placement of a 14 [place] internal external biliary drain The patient tolerated the procedure well. The tube was flushed and secured. IMPRESSION: 1. 6 cm malignant obstruction in the proximal CBD 2. Dilatation of the malignant obstruction with a 7 mm balloon. 3. Successful placement of a 14 [place] internal external biliary drain.
[2018-09-17 06:23] LABS: HEMOGLOBIN 11.1 g/dL (12.0-16.0); MEAN CELL VOLUME 93.4 fl (80.0-105.0); MEAN CORPUSCULAR HEMOGLOBIN 30.5 pg (25.0-35.0); MEAN CORPUSCULAR HGB CONC 32.6 g/dl (31.0-37.0); MEAN PLATELET VOLUME 13.2 fl (7.0-11.0); RBC 3.64 10^6/uL (3.5-6.1); RED CELL DISTRIBUTION WIDTH 16.9 % (11.5-14.5); WHITE BLOOD COUNT 6.6 10^3/uL (4.5-11.0)
[2018-09-17 06:59] VITALS: BP 119/49; PULSE 72; TEMP 97.7; O2SAT 98
[2018-09-17 07:32] LABS: ALB/GLOB RATIO 0.9 (1.1-1.8); ALT/SGPT 151 U/L (7-56); AST/SGOT 183 U/L (14-36); BLOOD UREA NITROGEN 10 mg/dL (7-21); CALCIUM 8.8 mg/dL (8.4-10.5); GFR NON-AFRICAN AMERICAN > 60
[2018-09-17] MEDS ORDERED: Tiotropium 18 mcg Cap For Inhalation INH SCH (10:00)
[2018-09-17] MEDS ORDERED: diltiaZEM 180 mg/24 Hours CD Cap PO SCH (10:00)
[2018-09-18] MEDS ORDERED: Cholecalciferol 1,000 INTLU TAB PO SCH (10:00)
== END 2018-09-17 14:12 | disposition home or self-care (01) ==
LOC: SDSVAS 13:14 → 3RNO 20:05 → SDSVAS 09-17 14:12
PROVIDERS: ATTEND Radiology Vascular & Interventional Radiology
DX: K83.1 Obstruction of bile duct (principal); K86.89 Other specified diseases of pancreas
CPT/HCPCS: 47534; 47542; 99152; 99153; A4358; C1725 ×2; C1729; C1760; C1769 ×4; C1887; C1894; C9113; J0690; J1170; J1644; J1885; J2250; J2405; J3010; J7030

== ENCOUNTER 2018-09-18 00:29 | Inpatient (IN) | payer MEDICARE, BC | END 2018-09-30 13:30 | disposition hospice, inpatient (51) | DRG 871 | LOC: 5RSO 09-22 13:50 → 5RNO 09-22 15:01 → ED 00:29 → ERH 03:00 → 5RNO 20:42 | PROC: 0FBG3ZX Excision of Pancreas, Percutaneous Approach, Diagnostic (ICD-10-PCS; principal; 2018-09-19 14:00) | PROC: BW201ZZ Computerized Tomography (CT Scan) of Abdomen using Low Osmolar Contrast (ICD-10-PCS; 2018-09-19 14:00) | DX: A41.51 Sepsis due to Escherichia coli [E. coli] (principal); J18.9 Pneumonia, unspecified organism; K83.1 Obstruction of bile duct; K85.90 Acute pancreatitis without necrosis or infection, unspecified; C25.9 Malignant neoplasm of pancreas, unspecified; C78.00 Secondary malignant neoplasm of unspecified lung; C78.7 Secondary malignant neoplasm of liver and intrahepatic bile duct; D68.9 Coagulation defect, unspecified; K56.7 Ileus, unspecified; E11.9 Type 2 diabetes mellitus without complications; I10 Essential (primary) hypertension; Z79.899 Other long term (current) drug therapy; Z79.82 Long term (current) use of aspirin; Z85.72 Personal history of non-Hodgkin lymphomas; Z92.21 Personal history of antineoplastic chemotherapy; Z87.891 Personal history of nicotine dependence; I48.91 Unspecified atrial fibrillation; R63.4 Abnormal weight loss; I48.2 Chronic atrial fibrillation; D64.9 Anemia, unspecified; Z66 Do not resuscitate; B96.20 Unspecified Escherichia coli [E. coli] as the cause of diseases classified elsewhere; E86.0 Dehydration; E78.00 Pure hypercholesterolemia, unspecified; G89.29 Other chronic pain; I25.118 Atherosclerotic heart disease of native coronary artery with other forms of angina pectoris; I48.0 Paroxysmal atrial fibrillation; J43.9 Emphysema, unspecified; Z16.11 Resistance to penicillins; Z51.5 Encounter for palliative care; Z79.01 Long term (current) use of anticoagulants; Z80.3 Family history of malignant neoplasm of breast; Z82.0 Family history of epilepsy and other diseases of the nervous system; Z95.5 Presence of coronary angioplasty implant and graft ==

== ENCOUNTER 2018-09-30 13:33 | Inpatient (IN) | payer OTHER ==
[2018-09-18 20:19] VITALS: BMI 29.9
[2018-09-29 14:21] VITALS: PULSE 75
[2018-09-30] MEDS ORDERED: Morphine PCA 1 mg/ml (30ml) 30 ML IV PRN (13:46)
[2018-09-30] MEDS ORDERED: Morphine 2 mg/ml ISec IVP STA (13:48)
--- NOTE | 2018-09-30 19:46 | CP.PCM.HP ---
<FreddieMarco - Last Filed: 10/01/18 14:48> History of Present Illness - History of Present Illness History of Present Illness: Marco Frazier, PGY-1 Internal Medicine History and Physical for Dr. Metzger 78 year old female with past medical history of hypertension, CAD, atrial fibrillation, type 2 diabetes mellitus, COPD, non Hodgkin's lymphoma initially presented to the hospital with shortness of breath. Patient was diagnosed with pancreatic cancer and E. Coli bacteremia on this admission. Upon this admission, patient had severe constipation treated with multiple enemas and miralax with multiple bowel movements over the weekend. In addition, patient was found to have E. Coli bacteremia and was treated with antibiotics, but was made hospise before patient could complete full regimen of 2 weeks of antibiotics. Patient was initially on vancomycin and zosyn, which was deescalated to cefepime after patient was found to have the E. Coli bacteremia. As the admission progressed, patient had worsening of leukocytosis and patient was started on vancomycin as per Dr. Fuentes and ilda as per GI. Patient had obstructive jaundice with bilirubin as high as 14 during the admission due to obstruction of biliary drain. This was relieved with flushing the drain. Bilirubin trended down to 4.2 but once again trended up to 5.1. Dr. Cagle was hoping to start patient on chemotherapy with abraxane and gemcitabine once patient's bilirubin was less than 2.4. Radiation therapy was also considered. However, patient's condition significantly deteriorated as the admission progressed and patient was very fatigued and in pain leading to family and patient wishing for patient to be made hospise. Palliative care started comfort care with morphine [facility], zofran, and PPI. PMH: HTN, CAD, afib, T2DM, COPD, non hodgkin's lymphoma s/p chemo (2006) PSH: s/p 6 cardiac stents placed at [facility] (most recent 08/2017) SHx: smoked 1.5 ppd cigarettes, quit in 2006 when diagnosed with lymphoma; denies alcohol or illicit drug use; retired, lives with children FHx: Alzheimer's disease in family Allergies: NKDA PMD: Dr. Langston Present on Admission - Present on Admission Any Indicators Present on Admission: No Review of Systems - Review of Systems Review of Systems: except as in HPI Past Patient History - Infectious Disease Hx of Infectious Diseases: None - Past Social History Smoking Status: Former Smoker - CARDIAC Hx Cardiac Disorders: Yes Hx Hypercholesterolemia: Yes Hx Hypertension: Yes - PULMONARY Hx Chronic Obstructive Pulmonary Disease (COPD): Yes - NEUROLOGICAL Hx Paralysis: No - HEENT Hx HEENT Problems: No - RENAL Hx Chronic Kidney Disease: No - ENDOCRINE/METABOLIC Hx Diabetes Mellitus Type 2: Yes - HEMATOLOGICAL/ONCOLOGICAL Hx Blood Transfusions: No - INTEGUMENTARY Hx Dermatological Problems: No - MUSCULOSKELETAL/RHEUMATOLOGICAL Hx Musculoskeletal Disorders: Yes - GASTROINTESTINAL Hx Gastrointestinal Disorders: No Hx Pancreatitis: Yes Other/Comment: Pancreatic Cancer. - GENITOURINARY/GYNECOLOGICAL Hx Genitourinary Disorders: No - PSYCHIATRIC Hx Emotional Abuse: No Hx Physical Abuse: No Hx Substance Use: No - SURGICAL HISTORY Hx Cardiac Catheterization: Yes (stents) Hx Coronary Stent: Yes - ANESTHESIA Hx Anesthesia Reactions: Yes (NAUSEA) Hx Malignant Hyperthermia: No Meds Allergies/Adverse Reactions: Allergies Allergy/AdvReac Type Severity Reaction Status Date / Time No Known Allergies Allergy Verified 09/30/18 17:04 Physical Exam - Constitutional Appears: Other (fatigued and somnolent) - Head Exam Head Exam: ATRAUMATIC, NORMAL INSPECTION, NORMOCEPHALIC - Eye Exam Eye Exam: EOMI, PERRL - ENT Exam ENT Exam: Mucous Membranes Dry - Respiratory Exam Respiratory Exam: Clear to Auscultation Bilateral, NORMAL BREATHING PATTERN - Cardiovascular Exam Cardiovascular Exam: Irregular Rhythm - GI/Abdominal Exam GI & Abdominal Exam: Distended, Soft. absent: Tenderness Additional comments: biliary drain intact - Extremities Exam Extremities exam: Positive for: normal inspection - Neurological Exam Neurological exam: Alert, CN II-XII Intact, Oriented x3 - Skin Skin Exam: Dry, Intact Assessment & Plan - Assessment and Plan (Free Text) Assessment: 78 year old female with past medical history of hypertension, CAD, atrial fibrillation, type 2 diabetes mellitus, COPD, non Hodgkin's lymphoma presents for hospise care after being diagnosed with stage IV pancreatic adenocarcinoma Plan: Hospise care for pancreatic adenocarcinoma -Continue with scopolamine 1 patch TD, morphine [facility] PRN, ativan PRN, benadryl PRN, and tylenol PRN Patient plan was discussed with attending. - Date & Time Date: 10/01/18 Time: 14:48 <Griselda Metzger - Last Filed: 10/06/18 14:16> Results - Vital Signs Recent Vital Signs: Last Vital Signs Temp 97.4 F L 09/30/18 20:05 Pulse 64 09/30/18 20:05 Resp 20 09/30/18 20:05 BP 137/50 L 09/30/18 20:05 Pulse Ox Attending/Attestation - Attestation I have personally seen and examined this patient.: Yes I have fully participated in the care of the patient.: Yes I have reviewed all pertinent clinical information: Yes Notes (Text): 10/06/18 14:13 Patient was seen and examined . Family is at bed side. 78 year old female with past medical history of obstructive jaundice secondary to recently diagnosed pancreatic adenocarcinoma s/p biliary drain placement, hypertension, CAD, diabetes, COPD and non-hodkin's lymphoma s/p chemotherapy was initally admitted to inpatient with complaint of shortness of breath. CT chest showed emphysema. Patient was also found to have E Coli bactermia. She was treated with IV antibiotics. Fecal impaction is resolved,. PT evaluation was requested. Palliative care evaluation was consulted as patient was not improving clinically.. Patient is DNR/DNI. .Patient is now admitted to Hospice.We will continue supportice care. Prognosis is guarded.
[2018-09-30 20:16] VITALS: BP 137/50; PULSE 64; RESP 20; TEMP 97.4
[2018-09-30] MEDS ORDERED: Pneumococcal 23-Valent Vaccine IM ONE (20:16)
[2018-09-30] MEDS ORDERED: Influenza Vaccine 60 mcg/0.5 mL SYR (4YR UP) IM ONE (20:16)
--- NOTE | 2018-10-01 15:20 | CP.PCM.PN ---
Subjective - Date & Time of Evaluation Date of Evaluation: 10/01/18 Time of Evaluation: 09:00 - Subjective Subjective: somnolent, mildly dyspnic Objective - Vital Signs/Intake and Output Vital Signs (last 24 hours): Temp Pulse Resp BP Pulse Ox 97.4 F L 64 20 137/50 L 09/30/18 20:05 09/30/18 20:05 09/30/18 20:05 09/30/18 20:05 - Medications Medications: Current Medications Acetaminophen (Tylenol 650 Mg Supp) 650 mg RC Q4H PRN PRN Reason: Fever >100.4 F Diphenhydramine HCl (Benadryl) 25 mg IVP Q8H PRN PRN Reason: upper airway congestion Morphine Sulfate (Morphine Paper Maker 1 Mg/Ml) 30 mls @ 2 mls/hr IV PRN PRN; Protocol PRN Reason: TRANSPORTATION MAINTENANCE SUPERVISOR PER MD ORDER Lorazepam (Ativan) 0.5 mg IVP Q6H PRN; Protocol PRN Reason: Anxiety Lorazepam (Ativan) 1 mg IVP STAT STA; Protocol Stop: 10/01/18 15:12 Scopolamine (Transderm-Scop) 1 patch TD Q3D SONIA Last Admin: 09/30/18 14:40 Dose: 1 patch - Constitutional Appears: Chronically Ill - Respiratory Exam Respiratory Exam: Decreased Breath Sounds Additional comments: irregular, dyspnea,upper airway congestion - Cardiovascular Exam Cardiovascular Exam: +S1, +S2 - GI/Abdominal Exam GI & Abdominal Exam: Distended, Soft, Hypoactive Bowel Sounds - Extremities Exam Additional comments: edematous Assessment and Plan - Assessment and Plan (Free Text) Assessment: 76 year old female with history of metastatic pancreatic cancer, obstructive jaundice, hepato renal failure who is under [facility] care for pain and symptom management 9 am: patient is mildly dyspnic. Upper airway congestion. Benadryl to be given 3 pm: restless, upper airway congestion, irregular breathing. Ativan 1 mg IVP, Morphine increased to 2mg /hr Signs of impending explained to family. End of life counselling and psychosocial support provided to family Time spent in end of life counseling 30 minutes
[2018-10-01] MEDS: DiphenhydrAMINE 50 mg/ml Inj IVP PRN (16:45)
[2018-10-01] MEDS: Morphine PCA 1 mg/ml (30ml) 30 ML IV PRN (17:13)
[2018-10-02] MEDS: DiphenhydrAMINE 50 mg/ml Inj IVP PRN ×3 (00:48→16:27)
--- NOTE | 2018-10-02 04:02 | PN ---
DATE: 10/01/2018 ONCOLOGY HOSPICE PROGRESS NOTE LOCATION: The patient is in room 568, bed 2. SUBJECTIVE: The patient is somnolent and mildly dyspneic. The patient was agitated early on and the morphine has been increased. She is on continuous drip at 2 an hour. She has also been given a dose of Benadryl and now placed on Ativan around the clock. MEDICATIONS: The patient's medications were reviewed. She is on Tylenol 650 every 4 hours p.r.n., diphenhydramine 25 mg IV every 8 hours p.r.n. The patient is on morphine 2 mg an hour, lorazepam 0.5 mg every 6 hours p.r.n. and one dose of lorazepam was given as IV stat, scopolamine transdermal patch one patch every 3 days. PHYSICAL EXAMINATION: VITAL SIGNS: Objectively, the patient's vital signs are stable. T-max is 97.4, pulse of 64, respirations 20, blood pressure 137/50. GENERAL: The patient appears chronically ill. RESPIRATORY: The patient is having labored breathing with decreased breath sounds in both bases. Breathing is regular. CARDIOVASCULAR SYSTEM: Reveals S1 and S2. No gallop or murmur is heard. ABDOMEN: Soft, distended. The patient has an internal-external stent. A dark gauze in the bag. EXTREMITIES: Reveal edema of the lower extremities. The patient has anasarca. NEUROLOGIC: The patient is mentally obtunded. ASSESSMENT AND PLAN: The patient is currently in hospice. She is a 78-year-old female with metastatic pancreatic cancer, obstructive jaundice related to multiple causes including liver metastasis, obstructive malignancy, and hepatorenal failure. She is currently under hospice care. We will continue to give her pain medications as needed and give her Ativan and Benadryl for restlessness. Detailed discussion with the patient's family. Family was counseled and I told them that the hospice services will definitely make sure if the patient is not uncomfortable and that they will keep her at least pain free and at least not to be restless at any given time. Signs of impending explained to the family. End-of-life counseling is also given to the family as well. Tai Cagle MD
[2018-10-02] MEDS: Morphine PCA 1 mg/ml (30ml) 30 ML IV PRN ×2 (07:55→22:52)
--- NOTE | 2018-10-02 11:47 | CP.PCM.PN ---
<Marco Frazier - Last Filed: 10/02/18 11:43> Subjective - Date & Time of Evaluation Date of Evaluation: 10/02/18 Time of Evaluation: 11:43 - Subjective Subjective: Marco Frazier, PGY-1, Internal Medicine Progress Note for Dr. Flynn Patient was seen and evaluated at bedside. Patient continues to be fatigued at bedside but does not have any acute complaints at this time. Morphine METAL SPRAYER was at bedside and patient looks comfortable at this time without any signs of respiratory distress. 12-point ROS was unremarkable except for what was mentioned above. Objective - Vital Signs/Intake and Output Vital Signs (last 24 hours): Temp Pulse Resp BP Pulse Ox 97.4 F L 64 20 137/50 L 09/30/18 20:05 09/30/18 20:05 09/30/18 20:05 09/30/18 20:05 Intake and Output: 10/02/18 10/02/18 06:59 18:59 Intake Total 30 Balance 30 - Medications Medications: Current Medications Acetaminophen (Tylenol 650 Mg Supp) 650 mg RC Q4H PRN PRN Reason: Fever >100.4 F Diphenhydramine HCl (Benadryl) 25 mg IVP Q8H PRN PRN Reason: upper airway congestion Last Admin: 10/02/18 07:54 Dose: 25 mg Morphine Sulfate (Morphine Cloud Automation Tester 1 Mg/Ml) 30 mls @ 2 mls/hr IV PRN PRN; Protocol PRN Reason: METAL SPRAYER PER MD ORDER Last Admin: 10/02/18 07:55 Dose: 2 mg/hr, 2 mls/hr Lorazepam (Ativan) 1 mg IVP Q12H SONIA; Protocol Last Admin: 10/02/18 10:09 Dose: 1 mg Scopolamine (Transderm-Scop) 1 patch TD Q3D SONIA Last Admin: 09/30/18 14:40 Dose: 1 patch - Constitutional Appears: No Acute Distress, Older Than Stated Age - Head Exam Head Exam: ATRAUMATIC, NORMAL INSPECTION, NORMOCEPHALIC - Eye Exam Eye Exam: EOMI, PERRL - ENT Exam ENT Exam: Mucous Membranes Moist - Neck Exam Neck Exam: Full ROM - Respiratory Exam Respiratory Exam: Clear to Ausculation Bilateral, NORMAL BREATHING PATTERN - Cardiovascular Exam Cardiovascular Exam: Irregular Rhythm - GI/Abdominal Exam GI & Abdominal Exam: Distended, Firm, Soft Additional comments: biliary drain intact - Extremities Exam Extremities Exam: Full ROM - Neurological Exam Neurological Exam: Alert, Awake, CN II-XII Intact, Oriented x3 - Skin Skin Exam: Dry, Intact Assessment and Plan - Assessment and Plan (Free Text) Assessment: 78 year old female with past medical history of hypertension, CAD, atrial fibrillation, type 2 diabetes mellitus, COPD, non Hodgkin's lymphoma presents for hospice care after being diagnosed with stage IV pancreatic adenocarcinoma Plan: Hospice care for pancreatic adenocarcinoma -Continue with scopolamine 1 patch TD, morphine METAL SPRAYER increased to 2 mg/hr PRN, ativan PRN, benadryl PRN, and tylenol PRN Patient plan was discussed with attending. <Kilo Flynn - Last Filed: 10/02/18 12:29> Objective - Vital Signs/Intake and Output Vital Signs (last 24 hours): Temp Pulse Resp BP Pulse Ox 97.4 F L 64 20 137/50 L 09/30/18 20:05 09/30/18 20:05 09/30/18 20:05 09/30/18 20:05 Intake and Output: 10/02/18 10/02/18 06:59 18:59 Intake Total 30 Balance 30 - Medications Medications: Current Medications Acetaminophen (Tylenol 650 Mg Supp) 650 mg RC Q4H PRN PRN Reason: Fever >100.4 F Diphenhydramine HCl (Benadryl) 25 mg IVP Q8H PRN PRN Reason: upper airway congestion Last Admin: 10/02/18 07:54 Dose: 25 mg Morphine Sulfate (Morphine Cloud Automation Tester 1 Mg/Ml) 30 mls @ 2 mls/hr IV PRN PRN; Protocol PRN Reason: METAL SPRAYER PER MD ORDER Last Admin: 10/02/18 07:55 Dose: 2 mg/hr, 2 mls/hr Lorazepam (Ativan) 1 mg IVP Q12H SONIA; Protocol Last Admin: 10/02/18 10:09 Dose: 1 mg Scopolamine (Transderm-Scop) 1 patch TD Q3D SONIA Last Admin: 09/30/18 14:40 Dose: 1 patch Attending/Attestation - Attestation I have personally seen and examined this patient.: Yes I have fully participated in the care of the patient.: Yes I have reviewed all pertinent clinical information, including history, physical exam and plan: Yes Notes (Text): 10/02/18 12:25 78 year old female with past medical history of hypertension, CAD, afib, diabetes, COPD, non-Hodgkin's lymphoma and recently diagnosed pancreatic adenocarcinoma who presented with bacteremia. She is now under hospice care. Continue with supportive care. Palliative care is following. Family is at bedside and questions were answered. Kilo Flynn MD Hospitalist.
--- NOTE | 2018-10-02 22:05 | PN ---
DATE: 10/02/2018 This is Hattie Dominguez's hospice visit on the medical floor. SUBJECTIVE: The patient is a 78-year-old female on hospice now with narcotic analgesics and comfort measures to continue, known to suffer from stage IV metastatic pancreatic cancer with hepatorenal failure. She is in no acute distress, with family at the bedside. OBJECTIVE: VITAL SIGNS: Temperature 97.4, pulse 64, respirations 20, blood pressure 137/50, and pulse ox 92%. HEENT: Mouth is open, not responding to verbal stimuli. NECK: Supple. HEART: Regular rate. LUNGS: Decreased breath sounds. ABDOMEN: With stent on the right. EXTREMITIES: Edema +1. NEUROLOGIC: The patient is obtunded, narcotic analgesics being given for comfort measures. ASSESSMENT: For this patient is that of stage IV metastatic pancreatic carcinoma with jaundice, liver metastasis, hepatorenal failure and intractable pain of cancer. PLAN: For this patient is to continue comfort measures with hospice protocols to continue. This is a complex patient with a comprehensive examination and medical evaluation given for this patient in excess of 10 minutes. Modesto Price MD
[2018-10-03] MEDS: Morphine PCA 1 mg/ml (30ml) 30 ML IV PRN (15:26)
--- NOTE | 2018-10-03 16:46 | CP.PCM.PRO ---
Pronouncement of Note - Clinical Findings Physical Exam: No Response Verbal/Painful Stimuli, Absent Peripheral Puls es{Carotid & Femoral}, Absent Heart & Breath Sounds, No Pupillary Light Reflex, No Corneal Reflex, Pupils Fixed & Dilated, Absence of Vital Signs - Pronouncement Time Time of Pronouncement of : 03:59 - Notifications Pronouncement Notifications: Family Notified, Atending Notified Marine Radio Installer And Servicer Notified: No - Autopsy Autopsy Requested: No - [place] [id number]
--- NOTE | 2018-10-03 18:19 | PN ---
DATE: 10/03/2018 This is Hattie Dominguez's hospice visit on the medical floor. For Dr. Cagle. SUBJECTIVE: The patient is a 78-year-old female on hospice with comfort measures including narcotic analgesics being given for the patient's known end-stage stage IV metastatic pancreatic cancer with hepatorenal failure. She appears in no acute distress, with family members at the bedside. OBJECTIVE/PHYSICAL EXAMINATION: GENERAL: She appears unresponsive to verbal stimuli. VITAL SIGNS: Temperature 97.4, pulse 64, respirations 20, blood pressure 137/50, and pulse ox 92%. HEENT: Mouth is open, tongue is dry. NECK: Supple. HEART: Regular rate. LUNGS: Decreased breath sounds. ABDOMEN: Stent on the right, nontender. EXTREMITIES: +1 edema. NEUROLOGIC: Obtunded with narcotic analgesics being given for her comfort measures. ASSESSMENT: The assessment for this patient is that of end-stage stage IV metastatic pancreatic cancer with liver metastases, hepatorenal failure, and intractable pain of cancer. PLAN: For this patient is to continue hospice protocols with comfort measures paramount. The patient was seen with family at the bedside for approximately 15 minutes spent discussing the patient's care and recommendations with family members. Prognosis is grave. Modesto Price MD
== END 2018-10-03 15:59 | DRG 951 ==
LOC: 5RNO 13:33
PROVIDERS: ADMIT Student in an Organized Health Care Education/Training Program; ATTEND Student in an Organized Health Care Education/Training Program
DX: Z51.5 Encounter for palliative care (principal); K76.7 Hepatorenal syndrome; K83.1 Obstruction of bile duct; C25.9 Malignant neoplasm of pancreas, unspecified; C78.7 Secondary malignant neoplasm of liver and intrahepatic bile duct; R78.81 Bacteremia; G89.3 Neoplasm related pain (acute) (chronic); B96.20 Unspecified Escherichia coli [E. coli] as the cause of diseases classified elsewhere; E11.9 Type 2 diabetes mellitus without complications; J44.9 Chronic obstructive pulmonary disease, unspecified; I10 Essential (primary) hypertension; E78.00 Pure hypercholesterolemia, unspecified; I25.10 Atherosclerotic heart disease of native coronary artery without angina pectoris; I48.91 Unspecified atrial fibrillation; K59.00 Constipation, unspecified; Z66 Do not resuscitate; R45.1 Restlessness and agitation; Z85.72 Personal history of non-Hodgkin lymphomas; Z87.891 Personal history of nicotine dependence; Z95.5 Presence of coronary angioplasty implant and graft